=== PATIENT | male | born 1940 | race Caucasian/White ===

== ENCOUNTER 2017-08-19 08:03 | Outpatient (CLI) | payer MEDICARE, BC ==
[2017-08-19 08:45] LABS: Bilirubin Negative (Negative); Blood, Urine Large (Negative); Clarity Clear (Clear); Glucose, Urine (Dipstick) Negative (Negative); Leukocyte Negative (Negative); Nitrite Negative (Negative); Protein, Urine (Dipstick) Negative (Neg-Trace); Specific Gravity, Urine 1.015 (1.005-1.030); Urobilinogen 0.2 mg/dL (0.2-1.0); pH, Urine 7.5 (5.0-9.0)
[2017-08-19 08:58] LABS: Bacteria/HPF None Seen HPF (None Seen); RBC/HPF GREATER THAN 50-TNTC HPF (0-3); Squamous Epithelial 0-3 HPF (0-3); Transitional Epithelial 0-3 HPF (0-3)
[2017-08-19] MEDS ORDERED: Iopamidol 370 76% 100 ML VIAL ONE (09:00)
--- NOTE | 2017-08-19 12:21 | CT ---
CT ABDOMEN AND PELVIS WITH AND WITHOUT IV CONTRAST: Date: 08/19/17 HISTORY: Hematuria. FINDINGS: The lung bases are clear. The liver, spleen, pancreas, and adrenal glands are normal. No calcified ga llstones are seen. No calculi seen in the kidneys, ureters, or the urinary bladder. No hydroureteronephrosis noted on ei ther side. Postcontrast images demonstrate no evidence of renal mass on either side. There is normal contrast excretion by the kidneys into the ureters and the urinary bladder. Prostate gland is enlarge d. No free air, free fluid, or lymphadenopathy seen in the abdomen or pelvis. There are vascular calcifi cations without evidence of aneurysmal dilatation of the abdominal aorta. Degenerative changes are pr esent in the spine. There is sigmoid diverticulosis. Fat-containing small bilateral inguinal hernia a re present, right larger than the left. IMPRESSION: 1. No CT evidence of urinary tract calculi/obstruction or renal mass. 2. Sigmoid diverticulosis. 3. Prostatic enlargement. POS: [facility]
== END 2017-08-19 08:04 | disposition home or self-care (01) ==
LOC: SCSCT 08:03
PROVIDERS: ATTEND Urology
DX: R31.0 Gross hematuria (principal); K57.30 Diverticulosis of large intestine without perforation or abscess without bleeding; N40.0 Benign prostatic hyperplasia without lower urinary tract symptoms
CPT/HCPCS: 74178; 81001; 82565; 87086

== ENCOUNTER 2017-09-04 11:57 | Outpatient (CLI) | payer MEDICARE, BC ==
[2017-09-04 13:57] LABS: Mean Corpuscular HGB CONC 33.2 g/dL (32.0-36.0); Mean Corpuscular Hemoglobin 31.7 pg (27.0-31.0); Mean Corpuscular Volume 95.5 fl (80.0-94.0); Mean Platelet Volume 7.7 fL (7.4-10.4); Platelet Count 246 thou/uL (130-400); RBC Distribution Width 11.9 % (11.5-14.5); Red Blood Cell (RBC) Count 5.05 mill/uL (4.70-6.10); White Blood Cell (WBC) Count 7.4 thou/uL (4.8-10.8)
[2017-09-04 13:59] LABS: Bilirubin Negative (Negative); Blood, Urine Large (Negative); Clarity CLEAR (Clear); Glucose, Urine (Dipstick) Negative (Negative); Leukocyte Negative (Negative); Nitrite Negative (Negative); Protein, Urine (Dipstick) Negative (Neg-Trace); Specific Gravity, Urine 1.009 (1.002-1.036); Urobilinogen 0.2 mg/dL (0.2-1.0)
[2017-09-04 14:02] LABS: Bacteria/HPF None Seen HPF (None Seen); Hyaline Casts/LPF 0-3 HYALINE CAST LPF (0-3 Hyaline); PTT 34.6 SEC (22.9-36.1); Pathc Cast-AUWi Flag 0.14 (0-2.49); Prothrombin Time 13.6 SEC (12.0-14.7); RBC/HPF GREATER THAN 50-TNTC HPF (0-3); Squamous Epithelial None Seen HPF (0-3); WBC/HPF 0-3 HPF (0-3)
[2017-09-04 14:22] LABS: Anion Gap 12 mmol/L (10-20); BUN (Urea Nitrogen) 13 mg/dL (8.4-25.7); Calc. Creatinine Clearance 0 mL/min (70-130); Calcium 10.2 mg/dL (7.8-10.44); Carbon Dioxide 28 mmol/L (23-31); Chloride 102 mmol/L (98-107); Estimated GFR-MDRD Greater than 90; Glucose 108 mg/dL (83-110); Potassium 4.2 mmol/L (3.5-5.1); Sodium 138 mmol/L (136-145)
--- NOTE | 2017-09-05 06:22 | EKG ---
Test Reason : Blood Pressure : / mmHG Vent. Rate : 084 BPM Atrial Rate : 084 BPM P-R Int : 180 ms QRS Dur : 088 ms QT Int : 384 ms P-R-T Axes : 063 010 063 degrees QTc Int : 453 ms Normal sinus rhythm Normal ECG No previous ECGs available Confirmed by KEREN FAJARDO ([id number]) on 09/05/2017 5:54:38 AM Referred By: AURA Confirmed By:KEREN FAJARDO
== END 2017-09-04 11:58 | disposition home or self-care (01) ==
LOC: LABBT 11:57
PROVIDERS: ATTEND Urology
DX: Z01.818 Encounter for other preprocedural examination (principal); C67.8 Malignant neoplasm of overlapping sites of bladder
CPT/HCPCS: 80048; 81003; 81015; 85027; 85610; 85730; 87086; 93005; 93010

== ENCOUNTER 2017-09-05 15:03 | Outpatient (CLI) | payer MEDICARE, BC | END 2017-09-05 15:04 | disposition home or self-care (01) | LOC: LABBT 15:03 | PROVIDERS: ATTEND Urology | DX: Z01.812 Encounter for preprocedural laboratory examination (principal); C67.8 Malignant neoplasm of overlapping sites of bladder | CPT/HCPCS: 86850; 86900; 86901 ==

== ENCOUNTER 2017-09-12 06:51 | Day surgery (SDC) | payer MEDICARE, BC ==
[2017-09-04 12:44] VITALS: BMI 28.7
[2017-09-12] MEDS ORDERED: WATER FOR INJECTION STERILE I-VESIC SCH (07:45)
[2017-09-12] MEDS ORDERED: ADMIXTURE FEE I-VESIC SCH (07:45)
[2017-09-12] MEDS ORDERED: MITOMYCIN I-VESIC SCH (07:45)
[2017-09-12] MEDS ORDERED: Levofloxacin 500 mg/D5W 100 ml Premix Bag ONE (08:08)
[2017-09-12] MEDS ORDERED: Ondansetron HCl/PF 4 MG/2 ML Vial ONE ×2 (08:39→16:48)
[2017-09-12] MEDS ORDERED: Fentanyl 100 MCG/2 ML VIAL ONE (08:39)
[2017-09-12] MEDS ORDERED: Midazolam HCl 2 mg/2 ml Vial ONE (08:39)
[2017-09-12] MEDS ORDERED: B & O ONE (10:06)
--- NOTE | 2017-09-12 12:26 | OP ---
DATE OF PROCEDURE: 09/12/2017 SERVICE: Urology. SURGEON: Manuel Robles M.D. PREOPERATIVE DIAGNOSIS: Bladder cancer and prostatic bleeding. PROCEDURE PERFORMED: Transurethral resection of bladder tumors greater than 5 cm along with mini res ection of the prostate for control of postoperative bleeding. INDICATIONS FOR PROCEDURE: Mr. Russell is a 77-year-old white male who presented to me with gross h ematuria. On cystoscopy, the patient was noted to have multifocal bladder tumors with hemorrhage, in dicating active bleeding. He also had significant dilated and ectatic veins and vasculature within t he prostate. It is very possible that he has blood from both sources. I discussed resection of the bladder tumors with postoperative mitomycin C with him with risks and benefits and he has agreed to p roceed forward. DESCRIPTION OF PROCEDURE: After identification of his armband and verification of consent, the patie yenni was brought back to the operating room where he underwent general anesthesia with endotracheal int ubation and for paralysis. He was then placed in dorsal lithotomy position and prepped and draped in usual sterile fashion. After appropriate timeout, a lubricated 26 Turkmen resectoscope sheath with v isual obturator was then placed through the urethra into the patient's bladder. Full cystoscopy was performed demonstrating the previously noted tumors at the right anterior left lateral posterior blad mayela wall and near the right UO. The visual obturator was switched out for the bipolar resectoscope s andrei with the prostate loop. Immediately it was noted there was a significant amount of hematuria i n the patient's bladder that required irrigation and removal of multiple clots. After inspection wit hin the bladder, it was apparent that bladder was not bleeding, but it was indeed the prostate that w as bleeding due to the high vascularity. During cystoscopy with the rigid scope, some of these veins , likely had become ruptured and were bleeding fairly profusely. Attempts at fulguration of these ve ins have resulted in more bleeding. Therefore, we had to actually resect the surface urothelium of t he prostate to control the bleeding as it was bleeding profusely to the point that the visualization was impaired and the patient would likely end up in clot retention postoperatively. Resection of the prostate was carried out just a few millimeters below the urothelium to avoid significant changes as sociated with TURP since I did not really discuss this with the patient preoperatively. Once the ble eding was more adequately controlled, resection of the tumors were performed using the bipolar loop. There was excellent resection into the detrusor muscle and there was no visible tumor left. All res ections were done on the left and right and posterior bladder wall. The area near the right UO was v garland small and could just be fulgurated. The area in the posterior bladder was also fulgurated except for the larger tumor which was resected as previously mentioned. All the bases of the bladder tumor s were cauterized and the surrounding tissues were cauterized to ensure adequate destruction of malig nant tissue. Remainder of cystoscopy demonstrated there were additional tumors noted within the blad mayela. Inspection of the prostatic fossa demonstrated repeat bleeding. Extensive fulguration was perf ormed within the prostatic urethra, but again the bleeding could not be completely stopped. It was s ignificantly slowed down, but oozing persisted as the prostate is extremely vascular. I elected to l eave the catheter in the patient. The catheter was replaced anyways for mitomycin C installation, bu t we will probably send the patient home with the catheter due to the amount of bleeding that is pres ent. A 20 Turkmen 2-way Esteban catheter was placed with ease into the bladder. A 10 mL of sterile lupe er placed into the balloon. The bladder was irrigated until clear. There does not appear to be any active bleeding from within the bladder as the urine was relatively clear. There was bleeding coming from around the catheter, indicating that all the bleeding is indeed from the prostate. A 40 mg of mitomycin were instilled into the bladder which was diluted in 20 mL of water. A Esteban catheter plug was placed. The patient was then taken out of positioning, awakened and taken to PACU for recovery in stable condition. Complication is prostatic bleeding, which was controlled intraoperatively. Th e patient probably lost only 75 mL of blood, but the bleeding was somewhat unexpected, but was able t o be controlled adequately. ESTIMATED BLOOD LOSS: 75 mL. RETAINED TUBES AND DRAINS: A 20 Turkmen Esteban catheter. SPECIMENS: Prostate chips and bladder tumor chips. DISPOSITION: The patient will be discharged home with a Esteban catheter. He will follow up with me i n approximately 7 days for a void trial.
[2017-09-12] MEDS ORDERED: Lidocaine 1% PF 5 ML VIAL ONE (16:48)
[2017-09-12] MEDS ORDERED: Glycopyrrolate 0.2 MG/ML 5 ML SYRINGE ONE (16:48)
[2017-09-12] MEDS ORDERED: Dexamethasone 20 MG/5 ML VIAL ONE (16:48)
[2017-09-12] MEDS ORDERED: PROPOFOL 200 MG/20 ML VIAL ONE (16:48)
== END 2017-09-12 14:30 | disposition home or self-care (01) ==
LOC: SDC 06:51
PROVIDERS: ATTEND Urology
PROC: 0T5B8ZZ Destruction of Bladder, Via Natural or Artificial Opening Endoscopic (ICD-10-PCS; principal; 2017-09-12)
DX: C67.8 Malignant neoplasm of overlapping sites of bladder (principal); R31.0 Gross hematuria; Z88.8 Allergy status to other drugs, medicaments and biological substances; Z88.2 Allergy status to sulfonamides
CPT/HCPCS: 52240; 88307; J9280; J1100; J1956; J2001; J2250; J2405; J2704; J3010

== ENCOUNTER 2018-01-06 11:34 | Outpatient (CLI) | payer MEDICARE, BC ==
[2018-01-06 12:58] LABS: Hemoglobin 15.1 g/dL (14.0-18.0); Mean Corpuscular HGB CONC 34.7 g/dL (32.0-36.0); Mean Corpuscular Hemoglobin 33.3 pg (27.0-31.0); Mean Corpuscular Volume 95.8 fL (78.0-98.0); Platelet Count 200 thou/uL (130-400); RBC Distribution Width 11.8 % (11.5-14.5); Red Blood Cell (RBC) Count 4.54 mill/uL (4.70-6.10)
[2018-01-06 13:05] LABS: PTT 34.1 SEC (22.9-36.1); Prothrombin Time 13.3 SEC (12.0-14.7)
[2018-01-06 13:19] LABS: Bilirubin Negative (Negative); Blood, Urine Negative (Negative); Clarity CLEAR (Clear); Glucose, Urine (Dipstick) Negative (Negative); Leukocyte Moderate (Negative); Nitrite Negative (Negative); Protein, Urine (Dipstick) Negative (Neg-Trace); Specific Gravity, Urine 1.009 (1.002-1.036)
[2018-01-06 13:22] LABS: Bacteria/HPF None Seen HPF (None Seen); Hyaline Casts/LPF 0-3 HYALINE CAST LPF (0-3 Hyaline); Pathc Cast-AUWi Flag 0.43 (0-2.49); RBC/HPF 0-3 HPF (0-3); Squamous Epithelial 0-3 HPF (0-3); WBC/HPF 21-50 HPF (0-3)
[2018-01-06 13:23] LABS: Anion Gap 12 mmol/L (10-20); BUN (Urea Nitrogen) 18 mg/dL (8.4-25.7); Calc. Creatinine Clearance 0 mL/min (70-130); Calcium 9.8 mg/dL (7.8-10.44); Carbon Dioxide 29 mmol/L (23-31); Chloride 102 mmol/L (98-107); Estimated GFR-MDRD 79; Glucose 86 mg/dL (83-110); Potassium 4.4 mmol/L (3.5-5.1); Sodium 139 mmol/L (136-145)
--- NOTE | 2018-01-07 07:00 | EKG ---
Test Reason : Blood Pressure : / mmHG Vent. Rate : 066 BPM Atrial Rate : 066 BPM P-R Int : 188 ms QRS Dur : 088 ms QT Int : 420 ms P-R-T Axes : 068 037 068 degrees QTc Int : 440 ms Sinus rhythm with Premature atrial complexes Otherwise normal ECG When compared with ECG of 04-SEP-2017 12:23, No significant change was found Confirmed by KEREN FAJARDO ([id number]) on 01/07/2018 7:00:36 AM Referred By: AURA Confirmed By:KEREN FAJARDO
== END 2018-01-06 11:35 | disposition home or self-care (01) ==
LOC: LABBT 11:34
PROVIDERS: ATTEND Urology
DX: Z01.818 Encounter for other preprocedural examination (principal); N40.1 Benign prostatic hyperplasia with lower urinary tract symptoms; R33.8 Other retention of urine
CPT/HCPCS: 80048; 81001; 85027; 85610; 85730; 87077; 87086; 87186; 93005; 93010

== ENCOUNTER 2018-01-10 13:11 | Outpatient (CLI) | payer MEDICARE, BC | END 2018-01-10 13:12 | disposition home or self-care (01) | LOC: LABBT 13:11 | PROVIDERS: ATTEND Urology | DX: Z01.812 Encounter for preprocedural laboratory examination (principal); N40.1 Benign prostatic hyperplasia with lower urinary tract symptoms; R33.9 Retention of urine, unspecified | CPT/HCPCS: 86850; 86900; 86901 ==

== ENCOUNTER 2018-01-16 05:54 | Observation (INO) | payer MEDICARE, BC ==
[2018-01-06 12:18] VITALS: BMI 27.2
[2018-01-16] MEDS ORDERED: Levofloxacin 500 mg/D5W 100 ml Premix Bag ONE (07:06)
[2018-01-16] MEDS ORDERED: B & O 30 MG SUPP ONE (07:20)
[2018-01-16] MEDS ORDERED: Iothalamate Meglumine 60% 50 ML VIAL FS ONE ×2 (07:21→09:33)
[2018-01-16] MEDS ORDERED: Fentanyl 100 MCG/2 ML VIAL ONE (07:42)
[2018-01-16] MEDS ORDERED: Promethazine HCl 25 MG/ML VIAL SLOW IVP PRN (09:18)
[2018-01-16] MEDS ORDERED: Ondansetron HCl/PF 4 MG/2 ML Vial IVP PRN ×2 (09:18→13:02)
[2018-01-16] MEDS ORDERED: Promethazine HCl 25 MG/ML VIAL IM PRN (09:18)
--- NOTE | 2018-01-16 10:05 | OP ---
DATE OF PROCEDURE: 01/16/2018 SERVICE: Urology SURGEON: Manuel Robles M.D. PREOPERATIVE DIAGNOSES: Benign prostatic hypertrophy with bladder outlet obstruction. POSTOPERATIVE DIAGNOSES: Benign prostatic hypertrophy with bladder outlet obstruction. PROCEDURE PERFORMED: Transurethral vaporization of residual prostate. INDICATIONS FOR PROCEDURE: Mr. Russell is a 77-year-old white male who initially presented to me with gross hematuria. He does have significant urinary difficulties. On his workup, he was found to have a large bladder tumor which was resected and found to be high grade. At the time, he had a portion of his prostate resected due to bleeding. Unfortunately he ended up on CIC postoperatively and has had to continue doing this, while we started BCG treatments. He is now coming in for surgical treatment of his prostate now that he has completed his induction BCG cycle, so that we may attempt to have him stop doing CIC and resume normal voiding. Risks and benefits have been discussed and he has agreed to proceed forward. DESCRIPTION OF PROCEDURE: After identification of his armband and verification of consent, the patient was brought back to the operating room where he underwent general anesthesia with an LMA. He was then placed in dorsal lithotomy position and prepped and draped in usual sterile fashion. After appropriate timeout, a lubricated 24-Bahraini resectoscope sheath with visual obturator was introduced per urethra into the bladder. The visual obturator was then switched out for the bipolar button. A cystoscopy was performed. There were no apparent bladder tumors. The prior resection site appears to be healing well and is now just an erythematous patch. The prostate itself does not have any unusual lesions. Vaporization was begun on the lateral lobes and these were taken down until there was enough working room. Relaxing incisions were made at 5 and 7 o'clock at the bladder neck and the intervening tissue vaporized. Vaporization was then completed circumferentially until the majority of the prostate had been removed. There is still some prostate tissue left, but it appears to be relatively thin rim under distention to avoid capsular injury and given the bladder neck was completely opened at this point along with removal of almost the majority of the obstructing prostate, I felt comfortable that the patient would do well with his urination. Meticulous hemostasis was performed. Both ureters were identified and were found to be in the orthotopic location unharmed. There were no specimens or pieces of the prostate within the bladder. The resectoscope was then removed and a 22-Bahraini three-way Esteban catheter was passed with ease into the bladder with 30 mL of sterile water in the balloon. CBI was initiated. The patient was then awakened and taken to PACU for recovery in stable condition. Of note, the patient had 16-A B&O suppository placed in his rectum prior to waking up. COMPLICATIONS: None. ESTIMATED BLOOD LOSS: Minimal. RETAINED TUBES AND DRAINS: A 22-Bahraini 3-way Esteban catheter on CBI. SPECIMENS: None. DISPOSITION: The patient will be kept in the hospital on observation for 23 hours. We will perform a void trial tomorrow and then he can be discharged. JUAN
[2018-01-16] MEDS ORDERED: PHENYLEPHRINE-NS 100 MCG/ML 10 ML SYRINGE ONE (11:29)
[2018-01-16] MEDS ORDERED: Lidocaine 1% PF 5 ML VIAL ONE (11:29)
[2018-01-16] MEDS ORDERED: Glycopyrrolate 0.2 MG/ML 5 ML SYRINGE ONE (11:29)
[2018-01-16] MEDS ORDERED: Dexamethasone 20 MG/5 ML VIAL ONE (11:29)
[2018-01-16] MEDS ORDERED: PROPOFOL 200 MG/20 ML VIAL ONE (11:29)
[2018-01-16] MEDS ORDERED: Hyoscyamine Sulfate SL 0.125 mg Tablet SL PRN (13:02)
[2018-01-16] MEDS ORDERED: Acetaminophen 500 MG TAB PO PRN (13:02)
[2018-01-16] MEDS ORDERED: Bisacodyl 10 MG SUPP PR PRN (13:02)
[2018-01-16] MEDS ORDERED: traMADol HCl 50 MG TAB PO PRN (13:02)
[2018-01-16] MEDS ORDERED: hydrALAZINE 20 MG/ML VIAL SLOW IVP PRN (13:02)
[2018-01-16] MEDS ORDERED: diphenhydrAMINE 25 MG CAP PO PRN (13:02)
[2018-01-16] MEDS ORDERED: Morphine 4 MG/ML VIAL SLOW IVP PRN (13:02)
[2018-01-16] MEDS ORDERED: Oxybutynin 5 MG TAB PO PRN (13:02)
[2018-01-16] MEDS ORDERED: Mag-Al 1200 mg/1200 mg/30 ML UDCUP PO PRN (13:02)
[2018-01-16] MEDS: Docusate 100 MG CAP PO SCH (20:33)
[2018-01-17 04:28] LABS: #Eosinphils 0.2 thou/uL (0.0-0.7); #Lymphocytes 1.1 thou/uL (1.20-3.40); #Monocytes 0.7 thou/uL (0.11-0.59); #Neutrophils 6.8 thou/uL (1.40-6.50); %Basophils 0.4 % (0.0-1.0); %Eosinophils 1.8 % (0.0-10.0); %Lymphocytes 12.2 % (21.0-51.0); %Monocytes 8.2 % (0.0-10.0); %Neutrophils 77.5 % (42.0-75.0); Hemoglobin 13.8 g/dL (14.0-18.0); Mean Corpuscular HGB CONC 34.7 g/dL (32.0-36.0); Mean Corpuscular Hemoglobin 33.5 pg (27.0-31.0); Mean Corpuscular Volume 96.4 fL (78.0-98.0); Mean Platelet Volume 7.8 fL (7.4-10.4); Platelet Count 192 thou/uL (130-400); RBC Distribution Width 11.7 % (11.5-14.5); Red Blood Cell (RBC) Count 4.11 mill/uL (4.70-6.10); White Blood Cell (WBC) Count 8.7 thou/uL (4.8-10.8)
[2018-01-17 04:35] LABS: Anion Gap 12 mmol/L (10-20); BUN (Urea Nitrogen) 16 mg/dL (8.4-25.7); Calc. Creatinine Clearance 79 mL/min (70-130); Calcium 9.3 mg/dL (7.8-10.44); Carbon Dioxide 26 mmol/L (23-31); Chloride 105 mmol/L (98-107); Estimated GFR-MDRD 78; Glucose 112 mg/dL (83-110); Sodium 139 mmol/L (136-145)
[2018-01-17] MEDS ORDERED: Levothyroxine Sodium 50 MCG TAB PO SCH (06:00)
[2018-01-17] MEDS: Docusate 100 MG CAP PO SCH (08:11)
[2018-01-17] MEDS ORDERED: Ezetimibe 10 MG TAB PO SCH (09:00)
[2018-01-17] MEDS ORDERED: Fenofibrate Nanocrystallized 145 MG TAB PO SCH (09:00)
[2018-01-17] MEDS ORDERED: Nisoldipine 8.5 MG TAB PO SCH (09:00)
[2018-01-17 11:49] VITALS: BP 139/81; TEMP 98
--- NOTE | 2018-01-17 14:04 | PRG ---
DATE OF SERVICE: 01/17/2018 SUBJECTIVE: The patient states he is feeling very good today. He has had no major bladder spasms an d no problems with his catheter. His CBI was turned off this morning and his urine looks good. Ther efore, his catheter was removed as a void trial. He since has urinated several times, which are in t he bathroom for my inspection. He did not report any significant burning and stated the urine stream felt quite good. He is, however, complaining of significant urinary frequency about every hour. He denies any chest pain or shortness of breath. PHYSICAL EXAMINATION: VITAL SIGNS: Temperature 98, pulse 67, respirations 16, blood pressure 139/81, saturations 94% on ro om air. GENERAL: No apparent distress. CARDIOVASCULAR: Regular rate and rhythm. ABDOMEN: Soft, nontender, nondistended. Positive bowel sounds. GENITOURINARY: Nonfocal. No blood at the meatus currently, mild erythema around the meatus. Testes are bilaterally descended. Esteban catheter was clear at the time of catheter removal. EXTREMITIES: No clubbing, cyanosis or edema. LABORATORY DATA: The full set of labs is in the [facility] system, which I have reviewed. Of note, th e patient's white count is 8.7 with a hemoglobin of 13.8 and a creatinine of 0.94. ASSESSMENT AND PLAN: A 77-year-old white male with benign prostatic hypertrophy and history of bladd er cancer, status post transurethral electrovaporization of the prostate postop day 1 with successful void trial and relatively clear urine. His urine specimens do not show any significant blood and he is not having any problems emptying. Therefore, I think he is good to go home. I have gone over de s discharge instructions and I will see him back in 2 weeks for a postop check.
--- NOTE | 2018-01-17 14:28 | DIS ---
DATE OF ADMISSION: 01/16/2018 DATE OF DISCHARGE: 01/17/2018 ADMITTING DIAGNOSIS: Benign prostatic hyperplasia with obstruction. DISCHARGE DIAGNOSIS: Benign prostatic hyperplasia with obstruction. PROCEDURE PERFORMED WHILE INPATIENT: Transurethral vaporization of the prostate. BRIEF HISTORY: Mr. Russell is a 77-year-old white male with a history of bladder cancer, hematuria, and urinary symptoms. He has already undergone a TURBT with removal of his high-grade bladder cance r and has started induction BCG. During this time period, he ended up in urinary retention and was d oing CIC. To treat this, we have now brought him in for vaporization of his prostate. HOSPITAL COURSE: After patient's surgery (please see operative note for details), the patient was ke pt in the hospital on observation for continuous bladder irrigation for hematuria. He had very littl e hematuria and his CBI was stopped the day after surgery. His urine was very clear. His catheter w as removed and the patient voided spontaneously 3 times, each which demonstrated less blood in the ur ine. He felt good without any problem, so he was discharged home. DISPOSITION: Discharge to home. DISCHARGE CONDITION: Good. DISCHARGE MEDICATIONS: Including resuming all of his home medications except Flomax. He will, in ad dition, be given Colace 100 mg p.o. b.i.d., oxybutynin extended release 10 mg p.o. daily, and Pyridiu m 100 mg p.o. t.i.d. p.r.n. dysuria. The patient also has a supply of tramadol 50 mg p.o. q.6 hours p.r.n. pain, which he already has from his prior TURBT, which he can take for pain control if needed. DISCHARGE INSTRUCTIONS: Include no heavy lifting over 20 pounds, no strenuous activity for 1-2 weeks . He can submerge in shower. He can have a regular diet. He should notify me if there are any feve rs, significant bleeding, uncontrolled pain, or inability to urinate. He should also avoid constipat ion. His followup will be in 2 weeks for a postop check.
== END 2018-01-17 14:22 | disposition home or self-care (01) ==
LOC: SDC 05:54 → INTOOBSV 12:54 → SURG B 12:54
PROVIDERS: ADMIT Urology; ATTEND Urology
PROC: 0VB08ZZ Excision of Prostate, Via Natural or Artificial Opening Endoscopic (ICD-10-PCS; principal; 2018-01-16)
DX: N40.1 Benign prostatic hyperplasia with lower urinary tract symptoms (principal); N13.8 Other obstructive and reflux uropathy; I10 Essential (primary) hypertension; E78.5 Hyperlipidemia, unspecified; E03.9 Hypothyroidism, unspecified; G43.909 Migraine, unspecified, not intractable, without status migrainosus; E07.9 Disorder of thyroid, unspecified; E78.00 Pure hypercholesterolemia, unspecified; Z85.51 Personal history of malignant neoplasm of bladder; Z79.899 Other long term (current) drug therapy; Z88.2 Allergy status to sulfonamides; Z88.8 Allergy status to other drugs, medicaments and biological substances
CPT/HCPCS: 52601; 80048; 85025; C1758; C1769; G0378; 36415; J1100; J1956; J2001; J2704; J3010; Q9961

== ENCOUNTER 2018-06-12 10:25 | Inpatient (IN) | payer MEDICARE, BC ==
[2018-06-12] MEDS ORDERED: Thiamine HCl 200 MG/2 ML VIAL ONE (11:18)
[2018-06-12 11:23] LABS: ALT (SGPT) 29 U/L (8-55); AST (SGOT) 25 U/L (5-34); Albumin 4.4 g/dL (3.4-4.8); Alkaline Phosphatase 59 U/L (40-150); Anion Gap 15 mmol/L (10-20); BUN (Urea Nitrogen) 13 mg/dL (8.4-25.7); Bilirubin, Total 0.7 mg/dL (0.2-1.2); Calc. Creatinine Clearance 0 mL/min (70-130); Calcium 9.7 mg/dL (7.8-10.44); Carbon Dioxide 25 mmol/L (23-31); Chloride 101 mmol/L (98-107); Estimated GFR-MDRD 83; Globulin 3.2 g/dL (2.4-3.5); Glucose 114 mg/dL (83-110); Magnesium 2.1 mg/dL (1.6-2.6); Potassium 4.2 mmol/L (3.5-5.1); Protein, Total 7.6 g/dL (5.8-8.1); Sodium 137 mmol/L (136-145)
[2018-06-12 11:27] LABS: #Basophils 0.1 thou/uL (0.0-0.2); #Eosinphils 0.2 thou/uL (0.0-0.7); #Monocytes 0.8 thou/uL (0.11-0.59); #Neutrophils 6.4 thou/uL (1.40-6.50); %Eosinophils 2.8 % (0.0-10.0); %Lymphocytes 11.2 % (21.0-51.0); %Monocytes 9.2 % (0.0-10.0); %Neutrophils 75.8 % (42.0-75.0); Hemoglobin 15.5 g/dL (14.0-18.0); Mean Corpuscular HGB CONC 33.6 g/dL (32.0-36.0); Mean Corpuscular Volume 95.2 fL (78.0-98.0); Mean Platelet Volume 8.3 fL (7.4-10.4); Platelet Count 194 thou/uL (130-400); RBC Distribution Width 12.1 % (11.5-14.5); Red Blood Cell (RBC) Count 4.85 mill/uL (4.70-6.10); White Blood Cell (WBC) Count 8.5 thou/uL (4.8-10.8)
[2018-06-12] MEDS ORDERED: Gadobenate Dimeglumine 529 MG/1 ML (20ML VIAL) ONE (11:28)
[2018-06-12 11:29] LABS: PTT 34.3 SEC (22.9-36.1); Prothrombin Time 13.5 SEC (12.0-14.7)
[2018-06-12 11:43] LABS: Bilirubin Negative (Negative); Blood, Urine Negative (Negative); Clarity Clear (Clear); Glucose, Urine (Dipstick) Negative (Negative); Leukocyte Trace (Negative); Nitrite Negative (Negative); Protein, Urine (Dipstick) Negative (Neg-Trace); Urobilinogen 0.2 mg/dL (0.2-1.0); pH, Urine 6.5 (5.0-9.0)
[2018-06-12 11:45] LABS: Specific Gravity, Urine 1.004 (1.002-1.036)
[2018-06-12 11:51] LABS: Bacteria/HPF Rare-Few HPF (None Seen); RBC/HPF 0-3 HPF (0-3); Squamous Epithelial 0-3 HPF (0-3); WBC/HPF 21-50 HPF (0-3)
--- NOTE | 2018-06-12 12:06 | CT ---
NONCONTRAST CT OF BRAIN: Date: 06/12/18 INDICATION: Right-sided hemianopsia with memory loss for 2 days. TECHNIQUE: Noncontrast CT images were obtained of the brain. No comparisons are available. FINDINGS: There is moderate chronic small vessel white matter ischemic change involving the cerebral hemisphere s bilaterally. There is remote lacunar infarct involving the left globus pallidus. There is a promine nt hypodensity involving the left aspect of the splenium with the corpus callosum measuring approxima tely 1.4 cm. There is some hypointensity involving the medial cortex of the left temporal lobe and le ft occipital lobe on image 17 of series 2, image 19 of series 2, and image 20 of series 2. This can b e related to a subacute chronic infarct or possibly metastatic disease. Septum pellucidum and third v entricle are midline. Skull and extracranial soft tissues are unremarkable. Mastoid air cells and par anasal sinuses are clear. IMPRESSION: 1. Subtle hypodensities along the cortex of the medial left temporal lobe and left occipital lobe ma y reflect subacute to chronic infarcts versus metastatic disease. MRI of the brain with and without c ontrast recommended for further evaluation. 2. Subtle hypodensity involving the left splenium of the corpus callosum may be related to a prior i nfarct, demylenation or possibly malignancy or metastatic disease. MRI of the brain with and without contrast will be helpful for further characterization. 3. Moderate chronic small vessel white matter ischemic change. Findings called to Dr. Salazar at 1135 hours on 06/12/18. CODE CR. POS: [facility]
--- NOTE | 2018-06-12 13:49 | MRI ---
MRI BRAIN WITH AND WITHOUT CONTRAST: Date: 06/12/18 CLINICAL HISTORY: Right hemianopsia. Reference made to preceding CT exam of head same date. FINDINGS: There is multifocal restricted diffusion of the left LIAISON OFFICER distribution which involves the left occipit al lobe, inferior left temporal lobe, and the left thalamus. There is no hemorrhagic transformation. There is a punctate focus of miller at the posterior left lentiform nucleus, which may be related to h emosiderin deposition from lacunar infarction. There is mild to moderate chronic ischemic disease of the cerebral white matter and josue. The skull base flow-voids are limited in assessment by the degree of patient motion. There is no enhancing intra-axial mass demonstrated. No ventriculomegaly or midli ne shift. IMPRESSION: Evidence of multifocal acute infarction, corresponding to left LIAISON OFFICER distribution. No hemorrhagic trans formation is demonstrated. POS: [facility]
[2018-06-12] MEDS ORDERED: Metoprolol Tartrate 5 MG/5 ML VIAL ONE ×2 (14:03→14:05)
[2018-06-12] MEDS ORDERED: Metoprolol Tartrate 25 MG TAB ONE ×2 (14:04→15:12)
[2018-06-12] MEDS ORDERED: Acetaminophen 500 MG TAB PO PRN (15:48)
[2018-06-12 18:19] VITALS: BMI 20.6
[2018-06-12] MEDS ORDERED: Thiamine HCl 500 MG, Admixture Fee 1 EACH in Sodium Chloride 0.9% 250 ML 250 ML IVPB SCH (20:00)
[2018-06-12] MEDS: Famotidine 20 MG TAB PO SCH (22:39)
[2018-06-12] MEDS: Docusate 100 MG CAP PO SCH (22:39)
[2018-06-13] MEDS: Levothyroxine Sodium 50 MCG TAB PO SCH (05:48)
[2018-06-13 06:39] LABS: #Basophils 0.1 thou/uL (0.0-0.2); #Eosinphils 0.3 thou/uL (0.0-0.7); #Lymphocytes 0.9 thou/uL (1.20-3.40); #Monocytes 0.8 thou/uL (0.11-0.59); #Neutrophils 4.1 thou/uL (1.40-6.50); %Basophils 0.8 % (0.0-1.0); %Eosinophils 5.5 % (0.0-10.0); %Lymphocytes 14.7 % (21.0-51.0); %Monocytes 12.4 % (0.0-10.0); %Neutrophils 66.6 % (42.0-75.0); Hemoglobin 13.9 g/dL (14.0-18.0); Mean Corpuscular HGB CONC 33.9 g/dL (32.0-36.0); Mean Corpuscular Hemoglobin 32.2 pg (27.0-31.0); Mean Platelet Volume 8.5 fL (7.4-10.4); Platelet Count 177 thou/uL (130-400); RBC Distribution Width 11.6 % (11.5-14.5); Red Blood Cell (RBC) Count 4.33 mill/uL (4.70-6.10); White Blood Cell (WBC) Count 6.2 thou/uL (4.8-10.8)
[2018-06-13] MEDS ORDERED: hydrALAZINE 25 MG TAB PO PRN (07:49)
--- NOTE | 2018-06-13 08:57 | ULT ---
CAROTID ULTRASOUND WITH GRAYSCALE AND DOPPLER DUPLEX COLORFLOW IMAGING SPECTRAL ANALYSIS PERFORMED: INDICATIONS: CVA. Vision deficit. Memory loss. FINDINGS: There is scattered mild atherosclerotic calcification of the carotid arteries. PEAK SYSTOLIC VELOCITY (CM/S): Right CCA 99 Left CCA 85 Right ICA 26 Left ICA 37 There is antegrade flow within the visualized bilateral vertebral arteries. IMPRESSION: 1. No hemodynamically significant stenosis of the right internal carotid artery. 2. No hemodynamically significant stenosis of the left internal carotid artery. POS: [facility]
[2018-06-13] MEDS ORDERED: Nisoldipine 8.5 MG TAB PO SCH (09:00)
[2018-06-13] MEDS: Fenofibrate Nanocrystallized 145 MG TAB PO SCH (10:02)
[2018-06-13] MEDS: Docusate 100 MG CAP PO SCH ×2 (10:02→21:45)
[2018-06-13] MEDS: Aspirin 325 MG TAB PO SCH (10:03)
[2018-06-13] MEDS: Ezetimibe 10 MG TAB PO SCH (10:03)
[2018-06-13] MEDS: Famotidine 20 MG TAB PO SCH ×2 (10:03→21:45)
[2018-06-13] MEDS ORDERED: NISOLDIPINE 8.5 MG PO SCH (12:00)
--- NOTE | 2018-06-13 16:30 | CT ---
CT BRAIN WITHOUT CONTRAST: CT ANGIOGRAM HEAD: CT ANGIOGRAM NECK: HISTORY: Left COVERED BUTTON MAKER distribution infarct. COMPARISON: Noncontrast head CT from 06/12/2018. CORRELATION: Brain MRI from 06/12/2018. FINDINGS: CT HEAD: Expected evolutionary changes, compatible with a subacute left COVERED BUTTON MAKER distribution infarct. N o acute parenchymal hemorrhage. No extraaxial hematoma. No midline shift. The basilar cisterns are patent. Chronic small vessel ischemic changes of the white matter identified. The calvarium is int act. Adequate aeration of the sinuses and mastoid air cells. There is no significant loss of cortical wall white matter differentiation. No pathologic enhancemen t of the brain parenchyma. Bilateral ocular lenses are appropriately located. Both globes are intact. Retrobulbar fat is prese rved. Symmetric attenuation of the optic nerves and ocular rectus muscles. Midline fatty raphe of the tongue is preserved. No obvious masses within the oral cavity. The aerod igestive tract is patent. Symmetric attenuation of the parotid and submandibular glands. Unremarkable sternocleidomastoid musc les. Unremarkable thyroid gland. No evidence of lymphadenopathy by size criteria. There are varying degrees of central canal stenosis and neural foraminal narrowing, on the basis of d egenerative change. Vacuum disk phenomenon is noted at the C5-C6 and C6-C7 levels. Cervical spine v ertebral body height is maintained. No fracture. The upper mediastinum and lung apices are unremark able. 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 The visualized subclavian ar teries are patent. There is atherosclerosis of a nonaneurysmal aorta. RIGHT CAROTID: The right carotid artery origin has appropriate enhancement and luminal diameter. Th e right common carotid artery, carotid bifurcation, and internal carotid artery have appropriate enha ncement and luminal diameter. There is calcified plaque in the right carotid bifurcation and in the proximal right internal carotid artery, without significant stenosis, based upon NASCET criteria. LEFT CAROTID: The left carotid artery origin has appropriate enhancement and luminal diameter. The left common carotid artery, carotid bifurcation, and internal carotid artery have appropriate enhance ment and luminal diameter. There is atherosclerotic disease without significant stenosis, based upon NASCET criteria, involving the left carotid bifurcation. Both cervical vertebral arteries are patent throughout their course in the neck. Left vertebral anni ry is dominant. CT ANGIOGRAM HEAD: Intracranial internal carotid arteries have appropriate enhancement and luminal d iameter. There is atherosclerosis involving both mid to distal cavernous segments and paraclinoid se gments. ANTERIOR CIRCULATION: Symmetric enhancement and luminal diameter of the A1 and M2 segments. The pro ximal A2 segments and the proximal MCA branches are unremarkable. POSTERIOR CIRCULATION: Limited evaluation of PICA origins. Both intracranial vertebral arteries do supply the basilar artery. There is short segment moderate stenosis involving the distal intracrania l right vertebral artery. The basilar artery is somewhat diminutive. The right P1 segment is unrema rkable. There is short segment severe stenosis involving the distal left P1 segment. IMPRESSION: 1. 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 2. There is atherosclerosis of both cervical carotid arteries. No significant stenosis based upon N ASCET criteria. POS: [facility]
[2018-06-13] MEDS ORDERED: cloNIDine 0.1 MG TAB PO PRN (17:30)
[2018-06-13] MEDS: hydrALAZINE 25 MG TAB PO SCH (21:46)
--- NOTE | 2018-06-14 00:58 | HP ---
CHIEF COMPLAINT: Headache and right visual changes. HISTORY OF PRESENT ILLNESS: This is a 77-year-old gentleman with a history of hypertension, hyperlipidemia, bladder cancer, hypothyroidism, who presented to emergency department with 3-4 days of worsening headache and strange visual changes. The patient states that he was in his usual state of health until about three or four days ago when he developed a headache. It seemed to worsen over the next few days without any relief with [id number] medicines. He noticed some visual changes on his right side where he would lose vision. Did have some word-finding problems that his had notice, presented to the emergency department and was found to have abnormalities on his physical exam including hemianopsia on the right as well as memory loss. CAT scan of his brain was abnormal with hypodensities in the cortex as well as on the left temporal lobe and left occipital lobe. MRI confirmed that which revealed a multifocal acute infarction of the left COOKING CHEF distribution. He was admitted, started on aspirin therapy as blood pressure was attempted to be controlled. Neurology was consulted. The patient remained stable and now being admitted for further evaluation and treatment. PAST MEDICAL HISTORY: Hypertension, hyperlipidemia, bladder malignancy, BPH, hypothyroidism, gout, cervical spine arthritis. MEDICATIONS: Include: 1. Prilosec p.r.n. 2. Oxybutynin 10 mg daily. 3. Toprol 25 mg daily. 4. Zetia 10 mg daily. 5. Nisoldipine 8.5 mg daily. 6. Levothyroxine 50 mcg daily. 7. TriCor 145 mg daily. 8. . ALLERGIES: INCLUDE SULFA, STATINS, VERAPAMIL, COZAAR, AND LISINOPRIL. PAST SURGICAL HISTORY: Excision of skin cancer, cystoscopy and TURP in 2018, colonoscopy in 2015, and bladder tumor excision in 2018. SOCIAL HISTORY: He is , lives at home with his . No smoking. No alcohol use. He is retired. REVIEW OF SYSTEMS: As per the history of present illness. CONSTITUTIONAL: He denies any recent fevers, chills, or recent illness. HEENT: Positive for headache. Positive for blurring, vision changes. No hearing changes. No congestion. CARDIAC: Denies chest pain, shortness of breath, or palpitations. PULMONARY: Denies cough or shortness of breath. GI: Denies nausea, vomiting, abdominal pain, melena, or hematochezia. : History of BPH. No hematuria. No dysuria. NEUROLOGIC: No weakness, seizures, or syncope. PHYSICAL EXAMINATION: VITAL SIGNS: Temperature 98.9, pulse is 74, respirations 20, blood pressure 169/89, pulse ox 94% on room air. GENERAL: He is awake and alert. No acute distress. Speech is clear. Examination was done with his son who states that he does have some memory loss, some word-finding difficulties at times. Mucosa is moist. HEENT: Pupils equally round, react to light and accommodation. Vision changes revealing right hemianopsia. NECK: Supple. No JVD, adenopathy, or bruits. HEART: Regular rate and rhythm. LUNGS: Clear. ABDOMEN: Soft. EXTREMITIES: With no edema. NEUROLOGIC: Cranial nerves 2-12 are intact. Strength is 5/5 in upper and lower extremities. Sensation is intact. DIAGNOSTIC DATA: Laboratory data is reviewed. Abnormal CT and MRI as noted above. White blood cell count 6200, hemoglobin and hematocrit 13.9 and 41, platelets of 177. PT and PTT were normal. Sodium 137, potassium 4.2, chloride 101, CO2 25, BUN and creatinine 13 and 0.89, serum glucose of 114. Liver enzymes are normal. Cholesterol 174, triglycerides 94, LDL of 112. Urinalysis with trace leukocytes. Chest x-ray showed no active disease. Carotid Doppler showed no stenosis. CT angio of the head and neck is pending. 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 PLAN: 1. Agree with admission to the stroke unit with telemetry. Neurology to evaluate. We will continue PT, OT, and speech therapy for evaluation. We will initiate aspirin therapy. May need further anticoagulation as per Neurology. 2. Hypertension. We will continue his home medications including metoprolol and nisoldipine. We will start hydralazine and clonidine p.r.n. 3. Hyperlipidemia. We will check fasting lipids. Continue his Zetia and TriCor as he is statin intolerant. 4. Disposition. We will consult rehab for possible short-term placement. 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 We will consult Case Management for further evaluation of his home needs. Job ID: [id number]
--- NOTE | 2018-06-14 03:17 | CON ---
DATE OF CONSULTATION: 06/13/2018 CHIEF COMPLAINT: Acute stroke. HISTORY OF PRESENT ILLNESS: The patient is a 77-year-old man who comes to the hospital with history of migraines and has longstanding history of aura with migraine. He had this aura for 2 days, but he felt worse. His migraine is usually involving right eye vision loss, but those vision problems lasted only 15 to 20 minutes in the past and he had a total of 3 episodes. At this time, it did not resolve and his vision changes lasted 2 days and he felt worse and comes to the hospital. He does not take any medications for long-standing migraine. He feels that his right side vision has been lost. He has memory problems and no numbness in arms or legs. No change in his strength. 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 The patient primarily notes this right eye visual field deficit, but no history of any weakness or numbness or dizziness. PREVIOUS MEDICAL HISTORY: The patient has a history of bladder cancer, hypertension, and hypothyroidism. His bladder cancer was diagnosed last year in August and he had chemo and surgery. PAST SURGICAL HISTORY: He had a bladder surgery, prostate surgery. He had benign prostatic hypertrophy for which he had surgery and there was no prostate cancer. ALLERGIES: HE IS ALLERGIC TO STATIN, BUT HE DOES NOT REMEMBER WHAT IT WAS. HE THINKS THIS WAS MORE OF A REACTION WHERE HE FELT BAD VERSUS ACTUAL DRUG ALLERGY , AND HE ALSO LISTED SULFA DRUGS, VERAPAMIL, AND LISINOPRIL UNDER HIS ALLERGIES. CURRENT MEDICATIONS AT HOME: Include, 1. Synthroid. 2. Metoprolol. 3. Zetia. 4. Nisoldipine. 5. Aspirin. 6. Biotin. 7. Turmeric root extract. 8. Calcium citrate. 9. Oxybutynin. 10. Colon Health capsules. 11. Vitamin C. 12. Tylenol. 13. Cranberry. FAMILY HISTORY: Positive for his father who at age 77 from prostate cancer. Son and daughter are 51 and 49, and there is no known history of stroke in his family. Mother at 98 from coronary artery disease. SOCIAL HISTORY: He does not smoke. He drinks 5 to 6 glasses per day for the last 35 years. He mostly drinks bourbon and water at least 4 per night per his . REVIEW OF SYSTEMS: NEUROLOGIC: Positive for vision changes and migraine headaches. CARDIAC: Negative for chest pain or palpitations. PULMONARY: Negative for shortness of breath or cough. GI: Negative for any diarrhea or vomiting. HEMATOLOGIC: Negative for bleeding diathesis. METABOLIC: Negative for diabetes, but positive for thyroid dysfunction. MUSCULOSKELETAL: Negative for any joint pain. LABORATORY WORKUP: White count 6.2, hemoglobin 13.9, hematocrit 41.1, platelets 177. Chemistry; sodium 137, potassium 4.2, chloride 101, BUN 13, creatinine 0.89, glucose is 114. Triglycerides 94, cholesterol 174, LDL 112, HDL 43. His MRI of the brain thus show an acute infarct in the left SPEECH CORRECTION ASSISTANT distribution without hemorrhagic transformation. I requested CT angiography on this patient and his CTA shows stroke segment severe stenosis in the distal left P1 segment and there is atherosclerosis of bilateral carotid artery and right P1 segment is unremarkable in the posterior circulation, right carotid artery origin has appropriate enhancement in luminal diameter, and left carotid artery origin has appropriate enhancement and no stenosis. Both cervical and vertebral arteries are patent through the course in the neck. PHYSICAL EXAMINATION: VITAL SIGNS: Blood pressure 169/89, temperature 99.1, pulse 70. GENERAL APPEARANCE: Well-built, well-nourished gentleman who seems to be comfortable. CHEST: Clear vesicular breathing. CARDIOVASCULAR: S1 and S2 heard. No murmurs. ABDOMEN: Soft. NEUROLOGIC: He seems to have some difficulties with orientation, questions, and also has some difficulty with concentration and focusing, but is able to follow most commands and try to participate in the discussion. Cranial nerves II through XII and normal pupillary reaction, and he has right homonymous hemianopia. Normal sensation of face. Normal extraocular movements. Normal elevation of palate. No facial asymmetry. Normal hearing to finger rub bilaterally and tongue midline. No atrophy noted. Motor; bulk normal, tone normal, strength 5/5 throughout in upper and lower extremities in iliopsoas, hamstrings, quadriceps, ankle dorsiflexion, plantar flexion, deltoid, biceps, triceps, wrist extension, and flexion bilaterally. Deep tendon reflexes are 1+ throughout, and he has normal [id number] and [id number]. Normal sensory examination. IMPRESSION: The patient is a 77-year-old man with known history of long- standing migraine, but he also has a history of alcoholism, hypertension, and he has developed sudden-onset vision problems which lasted longer than his usual migraine associated symptoms, and he has also developed acute memory problems. His examination shows venous stasis in both lower extremities and some varicose veins, and no motor deficits were noted, but he has some mild cognitive impairment plus right homonymous hemianopia. His CT angiogram shows stenosis in the left SPEECH CORRECTION ASSISTANT segment as expected. His clinical examination and history are most consistent with acute cerebrovascular accident with left posterior cerebral artery occlusion. TREATMENT RECOMMENDATIONS: 1. Please continue aspirin, but also add Plavix to his regimen. 2. Please consult Interventional Radiology in [facility] or in [place] to see if this gentleman is eligible for a stent placement in the left SPEECH CORRECTION ASSISTANT, so he does not have more difficulties in future. 3. I will discuss the results of the CT angio with him in the morning. Please call if you have any further questions and complete his stroke workup including echocardiogram. Job ID: [id number] MTDD
[2018-06-14] MEDS: Levothyroxine Sodium 50 MCG TAB PO SCH (05:23)
[2018-06-14] MEDS: hydrALAZINE 25 MG TAB PO SCH ×3 (09:35→20:55)
[2018-06-14] MEDS: Ezetimibe 10 MG TAB PO SCH (09:35)
[2018-06-14] MEDS: Aspirin 325 MG TAB PO SCH (09:35)
[2018-06-14] MEDS: Fenofibrate Nanocrystallized 145 MG TAB PO SCH (09:35)
[2018-06-14] MEDS: Famotidine 20 MG TAB PO SCH ×2 (09:35→20:53)
[2018-06-14] MEDS: NISOLDIPINE 8.5 MG PO SCH (09:35)
[2018-06-14] MEDS: Docusate 100 MG CAP PO SCH ×2 (09:36→20:53)
--- NOTE | 2018-06-14 13:19 | PRG ---
DATE OF SERVICE: 06/14/2018 PRIMARY CARE PHYSICIAN: Dr. Gutierrez. SUBJECTIVE: The patient has come in with a visual stroke in the left BIODIESEL PLANT OPERATIONS ENGINEER distribution. His outlook today is good. He feels slightly weak at times, little bit less coordinated at times, and sometimes a little more difficulty in memory. OBJECTIVE: VITAL SIGNS: Good. His blood pressure is 156/72, afebrile, pulse 68, O2 saturation 95% on room air. GENERAL: On exam, he is alert and oriented. NECK: Supple. No JVD. No bruits. No thyromegaly. HEART: S1, S2. No rubs, murmurs, or gallops. LUNGS: Clear to auscultation bilaterally. HEENT: Mucosa is moist. His right eye is slightly injected relative to the left eye. Ocular movement, his right eye is able now to go past midline toward the right. He has essentially full range of motion of both eyes. Visual sheehan show right-sided bilateral hemianopsia. NEUROLOGICAL: His other neurological findings. He has good examination proctor. No dysmetria. No pass pointing. Gait was not tested. ASSESSMENT: Cerebrovascular accident in the left BIODIESEL PLANT OPERATIONS ENGINEER distribution resulting in right bilateral hemianopsia. Continue evaluation with Neurology and PT, OT. 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 Job ID: [id number]
--- NOTE | 2018-06-14 18:47 | PRG ---
DATE OF SERVICE: 06/14/2018 INTERVAL HISTORY: The patient reports he is stable, but has continued confusion, and his family members were in the room, namely daughter and his son. Daughter had multiple questions for me. The patient continues to have right-sided vision loss, and his interval history as noted. His CT angiogram showed left CORRECTIONAL OFFICER SERGEANT occlusion, and his laboratory workup, no further lab results were available. PHYSICAL EXAMINATION: VITAL SIGNS: Temperature 99, blood pressure 156/72, pulse 68, and respiratory rate 20. NEUROLOGICAL: Higher intellectual functions. He thinks this is the October or November. Unable to give us the year and the date and oriented to self. There was definitely confusion during this conversation. On cranial nerve examination, he had right homonymous hemianopsia. No facial asymmetry noted. Tongue midline. No atrophy noted. Motor bulk normal. Tone normal. Strength is normal bilaterally. IMPRESSION: The patient with left CORRECTIONAL OFFICER SERGEANT distribution stroke with CORRECTIONAL OFFICER SERGEANT occlusion. At this time, he continues to have some confusion along with right-sided homonymous hemianopsia. I discussed the case with the patient and his family, and I do recommend him for possible stent procedure for his left CORRECTIONAL OFFICER SERGEANT, please consult Interventional Radiology, and I will see the patient as needed. He will also need further physical therapy and they apparently have questions about whether he can go to rehab center or he could go home. Call me if you have any further questions. Job ID: [id number]
[2018-06-15] MEDS: Levothyroxine Sodium 50 MCG TAB PO SCH (05:51)
[2018-06-15] MEDS: hydrALAZINE 25 MG TAB PO SCH ×3 (08:21→20:33)
[2018-06-15] MEDS: Famotidine 20 MG TAB PO SCH ×2 (08:21→20:30)
[2018-06-15] MEDS: Aspirin 325 MG TAB PO SCH (08:21)
[2018-06-15] MEDS: Ezetimibe 10 MG TAB PO SCH (08:22)
[2018-06-15] MEDS: Fenofibrate Nanocrystallized 145 MG TAB PO SCH (08:22)
[2018-06-15] MEDS: Docusate 100 MG CAP PO SCH ×2 (08:22→20:30)
[2018-06-15] MEDS: NISOLDIPINE 8.5 MG PO SCH (08:23)
--- NOTE | 2018-06-15 12:56 | PRG ---
DATE OF SERVICE: 06/15/2018 SUBJECTIVE: Today, he has no new complaints. Still feels a little unsure when he tries to ambulate just to his right-sided visual field deficit. He has had no new stroke symptoms, still no true dysarthria or dysphagia. OBJECTIVE: VITAL SIGNS: His vitals essentially unchanged. He is afebrile. BP is 140s over 60s, saturating 93% on room air. HEART: S1, S2. No rubs, murmurs, or gallops. LUNGS: Clear to auscultation bilaterally. NEUROLOGIC: Stable, but still with a right-sided homonymous hemianopsia. In discussion with the neurologist by face time with Dr. Chacon, the recommendation is for him to be evaluated for a MANAGER STARS stent as there is a MANAGER STARS occlusion. Consult ordering for Dr. Jimenez, from our Neurosurgery team for that and after that, he qualifies for inpatient rehab, so we will await to hear from Dr. Jimenez and then plan on him going to inpatient rehab. Job ID: [id number]
[2018-06-16] MEDS: Levothyroxine Sodium 50 MCG TAB PO SCH (05:51)
[2018-06-16] MEDS: Ezetimibe 10 MG TAB PO SCH (08:04)
[2018-06-16] MEDS: Aspirin 325 MG TAB PO SCH (08:04)
[2018-06-16] MEDS: Famotidine 20 MG TAB PO SCH ×2 (08:04→21:09)
[2018-06-16] MEDS: Docusate 100 MG CAP PO SCH ×2 (08:04→21:09)
[2018-06-16] MEDS: NISOLDIPINE 8.5 MG PO SCH (08:04)
[2018-06-16] MEDS: hydrALAZINE 25 MG TAB PO SCH ×3 (08:04→21:09)
[2018-06-16] MEDS: Fenofibrate Nanocrystallized 145 MG TAB PO SCH (08:04)
[2018-06-17] MEDS: Levothyroxine Sodium 50 MCG TAB PO SCH (05:25)
--- NOTE | 2018-06-17 05:54 | DIS ---
DATE OF ADMISSION: 06/12/2018 DATE OF DISCHARGE: 06/16/2018 ADMISSION DIAGNOSIS: Left AIR TWIST OPERATOR acute infarction resulting in right homonymous hemianopsia mental status change. DISCHARGE DIAGNOSES: Left AIR TWIST OPERATOR acute infarction resulting in right homonymous hemianopsia mental status change, hypertension, hyperlipidemia, history of bladder cancer. CONSULTATIONS: Dr. Chacon for neurology procedures, brain CT, brain MRI, CT angiogram, carotid Dopplers. HOSPITAL COURSE: This is a 77-year-old gentleman with a history of hypertension and hyperlipidemia, who presented to the emergency department with 3 to 4 days of worsening headache as well as strange visual changes. He noted that he has lost the right side of his visual field. He was seen in the emergency department, found to have word-finding difficulties and some mental changes. CAT scan was abnormal with hypodensities and MRI of the brain confirmed acute infarction of the left AIR TWIST OPERATOR distribution. He was admitted. Blood pressure was attempted to be controlled. He was started on aspirin initially and then added Plavix by Neurology. His symptoms remained stable throughout. CT angiogram of the head and neck confirmed distribution of the left AIR TWIST OPERATOR infarction. Dr. Zabrina Chacon saw the patient in evaluation for neurology, agreed with the plan for his acute AIR TWIST OPERATOR stroke. She initiated Plavix therapy as well and recommended evaluation for possible AIR TWIST OPERATOR stent placement. It was discussed with Dr. Yovany Jimenez, who recommended outpatient followup to see if he is a candidate for AIR TWIST OPERATOR stent placement. Physical therapy, occupational therapy, and speech therapy were all initiated during his hospitalization as far as his stroke protocol remained stable. It was discussed with the family as far his options for continued therapy and was recommended that he go to inpatient rehab prior to going home. Those arrangements were made pending insurance approval and he was stable for discharge on the day of discharge. DISCHARGE PHYSICAL EXAMINATION: VITAL SIGNS: Temperature 98.7, pulse of 66, respirations 20, blood pressure 122/69, pulse ox is 96% on room air. GENERAL: He is awake and alert, in no acute distress. Speech is clear. He was having some word-finding difficulties at times. HEENT: Mucosa is moist. NECK: Supple. No JVD, adenopathy, or bruits. HEART: Regular rate and rhythm. LUNGS: Clear. ABDOMEN: Soft. EXTREMITIES: No edema. Strength is 5/5 in upper and lower extremities. He does continue to have right-sided visual field cut. LABORATORY DATA: Reviewed. Imaging results as discussed above. DISCHARGE MEDICATIONS: Include: 1. Tylenol p.r.n. 2. Aspirin 325 mg daily. 3. Catapres 0.1 q.4 p.r.n. 4. Colace daily. 5. Zetia 10 mg daily. 6. Pepcid 20 mg b.i.d. 7. Tricor 145 mg daily. 8. Hydralazine 25 mg t.i.d. 9. Levothyroxine 50 mcg daily. 10. Metoprolol 50 mg daily. 11. Nisoldipine 8.5 mg daily. FOLLOWUP INSTRUCTIONS: The patient to be transferred to inpatient rehab and follow up with Dr. Jimenez after rehab to discuss options for AIR TWIST OPERATOR stent placement. Follow up in my office in 1 to 2 weeks following his discharge from rehab. Follow up with Neurology in 2 weeks after discharge from rehab. Job ID: [id number]
[2018-06-17] MEDS: Ezetimibe 10 MG TAB PO SCH (08:50)
[2018-06-17] MEDS: Fenofibrate Nanocrystallized 145 MG TAB PO SCH (08:50)
[2018-06-17] MEDS: Aspirin 325 MG TAB PO SCH (08:50)
[2018-06-17] MEDS: Docusate 100 MG CAP PO SCH ×2 (08:50→20:04)
[2018-06-17] MEDS: Famotidine 20 MG TAB PO SCH ×2 (08:50→20:04)
[2018-06-17] MEDS: Clopidogrel Bisulfate 75 MG TAB PO SCH (08:51)
[2018-06-17] MEDS: hydrALAZINE 25 MG TAB PO SCH ×3 (08:51→20:04)
[2018-06-17] MEDS: NISOLDIPINE 8.5 MG PO SCH (08:51)
--- NOTE | 2018-06-17 09:14 | PRG ---
DATE OF SERVICE: 06/17/2018 SUBJECTIVE: The patient was discharged yesterday, but was not able to be transferred to inpatient rehab due to bed availability. He is doing well. Denies any chest pain, shortness of breath, or palpitations. Denies headache at this time. Still having some word-finding difficulties, some confusion at times as well as right-sided loss of vision. The patient continues to feel weak, but does state that he is improving with physical therapy, but does not feel safe to go home. OBJECTIVE: VITAL SIGNS: Temperature 99.0, pulse is 64, respirations 19, blood pressure 116/56, and pulse ox is 93% to 94% on room air. GENERAL: He is awake and alert, in no acute distress. Speech is clear. NECK: Supple. HEART: Regular rate and rhythm. LUNGS: Clear. EXTREMITIES: Strength is 5/5 in upper and lower extremities. ASSESSMENT AND PLAN: 1. This is a 77-year-old gentleman, who suffered a left-sided SKATING RINK MANAGER brain infarction resulting in right homonymous hemianopsia. He is stable for transfer to inpatient rehab. Awaiting for bed availability. 2. Left SKATING RINK MANAGER brain infarction. We will continue aspirin and Plavix as per Neurology. Continue speech therapy, PT and OT, and awaiting placement for inpatient rehab. 3. Hypertension, stable. 4. Hyperlipidemia. We will continue his home medications. 5. Hypothyroidism. Continue his replacement. DISPOSITION: Awaiting for inpatient rehab placement. Job ID: [id number]
[2018-06-18] MEDS: Levothyroxine Sodium 50 MCG TAB PO SCH (05:25)
[2018-06-18] MEDS: Aspirin 325 MG TAB PO SCH (09:41)
[2018-06-18] MEDS: Docusate 100 MG CAP PO SCH (09:41)
[2018-06-18] MEDS: Fenofibrate Nanocrystallized 145 MG TAB PO SCH (09:42)
[2018-06-18] MEDS: Clopidogrel Bisulfate 75 MG TAB PO SCH (09:42)
[2018-06-18] MEDS: Famotidine 20 MG TAB PO SCH (09:42)
[2018-06-18] MEDS: Ezetimibe 10 MG TAB PO SCH (09:43)
[2018-06-18] MEDS: hydrALAZINE 25 MG TAB PO SCH ×2 (09:43→14:00)
[2018-06-18] MEDS: NISOLDIPINE 8.5 MG PO SCH (09:54)
--- NOTE | 2018-06-18 13:36 | PQF ---
CHERYL ALVARADO INO ALFARO DO [id number] [id number] CLINICAL DOCUMENTATION IMPROVEMENT CLARIFICATION FORM: ICD-10 Updated PLEASE DO AN ADDENDUM TO THE PROGRESS NOTE WITH ANY DOCUMENTATION UPDATES OR ADDITIONS AND CARRY THROUGH TO DC SUMMARY. THANK YOU. DATE: 06/18/2018 ATTN: DR. ALFARO Please exercise your independent, professional judgment in responding to the clarification form. Clinical indicators are provided on the bottom of this form for your review Please check appropriate box(s): [ ] Acute Metabolic Encephalopathy [ ] Acute Encephalopathy related to CVA [ xx ] Transient Alteration of Awareness [ ] Other diagnosis [ ] Unable to determine For continuity of documentation, please document condition throughout progress notes and discharge summary. Thank You. CLINICAL INDICATORS - SIGNS / SYMPTOMS / LABS 06/12-ER: HERE FOR VISION CHANGES. PÉREZ X 2D SIMILAR TO A MIGRAINE, NOW RESOLVED. DOESN'T REMEMBER CERTAIN THINGS. FEELS UNBALANCED WHEN HE WALKS. MRI SHOWS LEFT LANDMAN INFARCTION. NOT A TPA CANDIDATE DIAGNOSES INCLUDE: ACUTE ENCEPHALOPATHY NEURO CONSULT 06/13: HE SEEMS TO HAVE SOME DIFFICULTIES WITH ORIENTATION, QUESTIONS, AND ALSO HAS SOME DIFFICULTY WITH CONCENTRATION AND FOCUSING... ... BUT HE HAS SOME MILD COGNITIVE IMPAIRMENT PLUS RIGHT HOMONYMOUS HEMIANOPIA. 06/14-PN: HE FEELS SLIGHTLY WEAK AT TIMES, LITTLE BIT LESS COORDINATED AT TIMES , AND SOMETIMES A LITTLE MORE DIFFICULTY IN MEMORY. ... 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 06/17-DC: HE WAS SEEN IN THE ED, FOUND TO HAVE WORD-FINDING DIFFICULTIES AND SOME MENTAL CHANGES. RISK FACTORS CVA TREATMENTS: Neuro checks / neurology consult MRI of brain REHAB UPON DISCHARGE Thank you, Marion (This form is maintained as a part of the permanent medical record) 2015 [employer], [employer]. All Rights Reserved Marion Wiggins RN, CDIS [email or web address] [phone] [email or web address]
[2018-06-18 15:38] VITALS: BP 139/76; TEMP 98.2
== END 2018-06-18 17:10 | DRG 66 ==
LOC: SCSER 10:25 → SCSEROBS 12:05 → 2SE 17:55
PROVIDERS: ADMIT Family Medicine; ATTEND Family Medicine
DX: I63.532 Cerebral infarction due to unspecified occlusion or stenosis of left posterior cerebral artery (principal); H53.461 Homonymous bilateral field defects, right side; I10 Essential (primary) hypertension; E78.5 Hyperlipidemia, unspecified; Z85.51 Personal history of malignant neoplasm of bladder; G43.109 Migraine with aura, not intractable, without status migrainosus; E03.9 Hypothyroidism, unspecified; F10.20 Alcohol dependence, uncomplicated; I83.93 Asymptomatic varicose veins of bilateral lower extremities; I87.8 Other specified disorders of veins; R29.703 NIHSS score 3; R47.01 Aphasia; R47.1 Dysarthria and anarthria; R47.81 Slurred speech; N40.0 Benign prostatic hyperplasia without lower urinary tract symptoms; M46.82 Other specified inflammatory spondylopathies, cervical region
CPT/HCPCS: 36415; 70450; 70496; 70498; 70553; 80053; 80061; 81003; 81015; 82140; 83735; 85025; 85610; 85730; 93005; 93880; 94760; 96365; 96375; A9579; J3411; J7050

== ENCOUNTER 2018-10-19 10:17 | Emergency (ER) | payer MEDICARE, BC ==
[2018-10-19 10:38] LABS: #Basophils 0.1 thou/uL (0.0-0.2); #Eosinphils 0.2 thou/uL (0.0-0.7); #Lymphocytes 0.8 thou/uL (1.20-3.40); #Monocytes 0.3 thou/uL (0.11-0.59); #Neutrophils 3.1 thou/uL (1.40-6.50); %Basophils 1.2 % (0.0-1.0); %Eosinophils 4.8 % (0.0-10.0); %Lymphocytes 17.8 % (21.0-51.0); %Monocytes 6.3 % (0.0-10.0); Hemoglobin 15.4 g/dL (14.0-18.0); Mean Corpuscular HGB CONC 33.6 g/dL (32.0-36.0); Mean Corpuscular Hemoglobin 30.7 pg (27.0-31.0); Mean Corpuscular Volume 91.3 fL (78.0-98.0); Platelet Count 180 thou/uL (130-400); RBC Distribution Width 11.8 % (11.5-14.5); Red Blood Cell (RBC) Count 5.01 mill/uL (4.70-6.10); White Blood Cell (WBC) Count 4.5 thou/uL (4.8-10.8)
[2018-10-19 10:53] LABS: Potassium 4.4 mmol/L (3.5-5.1); Sodium 140 mmol/L (136-145)
[2018-10-19 10:54] LABS: ALT (SGPT) 13 U/L (8-55); AST (SGOT) 14 U/L (5-34); Albumin 4.3 g/dL (3.4-4.8); Alkaline Phosphatase 58 U/L (40-150); Anion Gap 12 mmol/L (10-20); BUN (Urea Nitrogen) 11 mg/dL (8.4-25.7); Bilirubin, Total 0.4 mg/dL (0.2-1.2); CK (CPK) 67 U/L (30-200); Calc. Creatinine Clearance 0 mL/min (70-130); Calcium 9.9 mg/dL (7.8-10.44); Carbon Dioxide 28 mmol/L (23-31); Chloride 104 mmol/L (98-107); Estimated GFR-MDRD 87; Globulin 2.8 g/dL (2.4-3.5); Glucose 132 mg/dL (83-110); Protein, Total 7.1 g/dL (5.8-8.1)
[2018-10-19] MEDS ORDERED: Diazepam 2.5 MG GEL ONE (11:04)
[2018-10-19] MEDS ORDERED: Meclizine HCl 25 MG TAB ONE (11:04)
[2018-10-19] MEDS ORDERED: Diazepam 5 MG TAB ONE (11:05)
--- NOTE | 2018-10-19 11:05 | RAD ---
EXAM: Single view of the chest HISTORY: Chest pain and dizziness COMPARISON: None FINDINGS: Single view of the chest shows a normal sized cardiomediastinal silhouette. There is no russ dence of consolidation, mass, or pleural effusion. The bones are unremarkable. IMPRESSION: No evidence of acute cardiopulmonary disease
--- NOTE | 2018-10-19 11:08 | CT ---
EXAM: CT brain without contrast HISTORY: History of stroke with worsening dizziness COMPARISON: 06/12/2018 TECHNIQUE: Multiple contiguous axial images were obtained and a CT of the brain without contrast. FINDINGS: There are scattered hypodensities in the subcortical and periventricular white matter consi stent with small vessel ischemic disease. There is encephalomalacia in the left parieto-occipital region from prior left PROCESSING SPECIALIST infarction. There is no evidence of hydrocephalus, intracranial hemorrhage , or extra-axial fluid collection. The calvarium and overlying soft tissues are unremarkable. The visualized paranasal sinuses and masto id air cells are well aerated. IMPRESSION: 1. No evidence of acute intracranial abnormality 2. Encephalomalacia from prior left PROCESSING SPECIALIST infarction.
[2018-10-19 11:55] LABS: Bilirubin Negative (Negative); Blood, Urine Negative (Negative); Clarity Clear (Clear); Glucose, Urine (Dipstick) Negative (Negative); Leukocyte Negative (Negative); Nitrite Negative (Negative); Protein, Urine (Dipstick) Negative (Neg-Trace); Urobilinogen 0.2 mg/dL (0.2-1.0)
== END 2018-10-19 12:16 | disposition home or self-care (01) ==
LOC: SCSER 10:17
DX: H81.399 Other peripheral vertigo, unspecified ear (principal); I10 Essential (primary) hypertension; E03.9 Hypothyroidism, unspecified; Z86.73 Personal history of transient ischemic attack (TIA), and cerebral infarction without residual deficits; Z79.899 Other long term (current) drug therapy; Z79.82 Long term (current) use of aspirin
CPT/HCPCS: 70450; 71045; 80053; 81003; 82550; 84484; 85025; 93005; J8499

== ENCOUNTER 2019-01-02 14:08 | Inpatient (IN) | payer MEDICARE, BC ==
[2019-01-02] MEDS ORDERED: hydrALAZINE 20 MG/ML VIAL SLOW IVP PRN (15:53)
[2019-01-02] MEDS ORDERED: Acetaminophen 500 MG TAB PO PRN (15:56)
[2019-01-02] MEDS ORDERED: cloNIDine 0.1 MG TAB PO PRN ×2 (15:56→17:40)
[2019-01-02] MEDS: Clopidogrel Bisulfate 75 MG TAB PO SCH (18:40)
[2019-01-02] MEDS: Aspirin 325 mg Enteric Coated Tablet PO SCH (18:40)
--- NOTE | 2019-01-02 19:07 | HP ---
HISTORY OF PRESENT ILLNESS: This is a 78-year-old white male with a history of a CVA in May 2018, who presents with a recurrent event. The states that in May of 2018, this year, the patient presented to the ER with acute CVA. He was seen by Dr. Chacon. He was started on aspirin and Plavix at that time. He presented with a right homonymous hemianopsia as well as right hemiparesis. He did have an infarct. There was infarct involving the medial cortex of the left temporal lobe and left occipital lobe. Since then, he has had a right hemiparesis as well. He has been receiving physical therapy and occupational therapy. He was doing relatively well until approximately 10 a.m., this morning. The came home to see her on the couch slouched over and snoring. She could not arouse him and immediately called EMS. He was brought to the emergency room, where he was becoming more responsive. The states that over the past several hours, his speech has improved. His strength has also improved. However, she states he is not back at baseline yet. He still has some difficulty with speech. Instantly, he was given a BCG this past Saturday and for bladder cancer by Dr. Robles. PAST MEDICAL HISTORY: Hypertension, hyperlipidemia, hypothyroidism, Conte esophagus, bladder cancer, herniated cervical disk, hypothyroidism, reflux, skin cancer, migraines. PAST SURGICAL HISTORY: Includes excision of skin cancer, colonoscopy, cystoscopy. PAST FAMILY HISTORY: Father with pancreatic cancer. Mother at the age of 98. SOCIAL HISTORY: He is retired. He is , and he does have a history of alcoholism. He presently lives with his spouse. He is a nonsmoker. ALLERGIES: SULFA. STATINS CAUSE MYALGIAS. VERAPAMIL CAUSES HIGH POTASSIUM. COZAAR AND LISINOPRIL ALSO CAUSE HIGH POTASSIUM. MEDICATIONS: 1. Levothyroxine 50 daily. 2. Nisoldipine ER 8.5 daily. 3. Toprol-XL 50 daily. 4. Aspirin 325 daily. 5. Surfak 240 daily. 6. Fenofibrate 145 daily. 7. Hydralazine 25 t.i.d. 8. at bedtime. 9. Zetia 10 daily. 10. Plavix 75 daily. REVIEW OF SYSTEMS: As above. PHYSICAL EXAMINATION: VITAL SIGNS: Blood pressure 190/89, pulse 64, respirations 18, pulse ox 98. GENERAL: The patient is sitting up. He is talking. Speech, he seems to have some difficulty finding words. However, he does can speak in sentences. He answers all questions appropriately. HEENT: Clear. NECK: Supple. HEART: Regular rate and rhythm. LUNGS: Clear. ABDOMEN: Soft. NEUROLOGIC: He does have right-sided weakness with hypertonicity. Slightly increased reflexes on the right. Definite weakness on the right. Left side normal. Abnormal [id number] and a rapid alternating movement on the right. He does have a right-sided homonymous hemianopsia. IMAGING STUDIES: CT of the brain shows no evidence of acute abnormality. 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 Chest x-ray, negative. ASSESSMENT: 1. Transient ischemic attack, rule out recurrent cerebrovascular accident. 2. Cerebrovascular accident, May 2018, with right hemiparesis. 3. Right homonymous hemianopsia. 4. Bladder cancer. 5. Alcoholism history. 6. Hypertension. 7. Hyperlipidemia. 8. Hypothyroid. 9. Skin cancer. 10. Migraines. PLAN: 1. MRI to evaluate for any evidence of new infarcts. If positive, we will consult Neurology. 2. Resume aspirin and Plavix. 3. OT and PT. 4. Consider retrial of statins. The patient has myalgias from statins in the past. 5. Need to consider whether to continue BCG. Job ID: [id number]
[2019-01-02] MEDS: Famotidine 20 MG TAB PO SCH (20:42)
[2019-01-02] MEDS: Docusate 100 MG CAP PO SCH (20:42)
[2019-01-03 05:11] LABS: Cardiac Risk 4.2 (Less than 4.5)
[2019-01-03] MEDS: Levothyroxine Sodium 50 MCG TAB PO SCH (07:49)
[2019-01-03] MEDS: Docusate 100 MG CAP PO SCH ×2 (08:25→20:53)
[2019-01-03] MEDS: Clopidogrel Bisulfate 75 MG TAB PO SCH (08:25)
[2019-01-03] MEDS: Fenofibrate Nanocrystallized 145 MG TAB PO SCH (08:26)
[2019-01-03] MEDS: Amlodipine 5 MG TAB PO SCH (08:26)
[2019-01-03] MEDS: Aspirin 325 mg Enteric Coated Tablet PO SCH (08:29)
[2019-01-03] MEDS: Famotidine 20 MG TAB PO SCH ×2 (08:29→20:53)
[2019-01-03] MEDS: Ezetimibe 10 MG TAB PO SCH (08:32)
[2019-01-03] MEDS ORDERED: Prevnar 13-Val Conj/PF 0.5 ML SYRINGE IM ONE (09:00)
--- NOTE | 2019-01-03 10:28 | PRG ---
DATE OF SERVICE: 01/03/2019 SUBJECTIVE: This morning, the patient is doing well. His states he is nearly back to baseline. The patient's speech is clear, converses appropriately. OBJECTIVE: VITAL SIGNS: Temperature 98.4, pulse 64, blood pressure 161/68, respirations 16, and pulse ox 94%. GENERAL: No acute distress. HEENT: Clear. HEART: Clear. LUNGS: Clear. ABDOMEN: Soft. NEURO: Nearly at baseline. LABORATORY DATA: Cholesterol 178, triglycerides 119. ASSESSMENT: 1. Transient ischemic attack, rule out cerebrovascular accident. It appears to be transient ischemic attack. The patient appears to be back at baseline. 2. Cerebrovascular accident in May 2018 with right hemiparesis. 3. Right homonymous hemianopsia. 4. Bladder cancer. 5. Alcoholism history. 6. Hypertension. 7. Hyperlipidemia. 8. Hypothyroid. 9. Skin cancer. 10. Migraines. PLAN: 1. MRI today. 2. Consult Dr. Chacon, Neurology. 3. Resume aspirin and Plavix. 4. OT/PT. 5. The patient is doing well. Job ID: [id number]
--- NOTE | 2019-01-03 10:34 | MRI ---
EXAM: MRI of the brain without contrast HISTORY: Stroke with dizziness COMPARISON: None TECHNIQUE: Multiplanar multisequence MR images were obtained of the brain without IV contrast. FINDINGS: Scattered foci of high T2/FLAIR signal in the subcortical and periventricular white matter are likely secondary to small vessel ischemic disease. Encephalomalacia seen in the left parieto-occipital region. No restricted diffusion. No hydronephrosis. No extra-axial fluid collection or intracranial hemorrhage. The expected flow voids are present. Corpus callosum, pituitary, and craniocervical junction are within normal limits. The calvarium and overlying soft tissues are unremarkable. The paranasal sinuses and mastoid air cells are well aerated. IMPRESSION: Small vessel ischemic disease without acute intracranial abnormality.
[2019-01-03 12:47] LABS: Anion Gap 11 mmol/L (10-20); BUN (Urea Nitrogen) 15 mg/dL (8.4-25.7); Calc. Creatinine Clearance 81 mL/min (70-130); Calcium 9.9 mg/dL (7.8-10.44); Carbon Dioxide 31 mmol/L (23-31); Chloride 101 mmol/L (98-107); Estimated GFR-MDRD Greater than 90; Glucose 87 mg/dL (83-110); Potassium 5.2 mmol/L (3.5-5.1); Sodium 138 mmol/L (136-145)
--- NOTE | 2019-01-03 14:37 | CT ---
Exam: CTA neck with contrast CTA head with contrast HISTORY: TIA. History of stroke in May with right-sided deficits COMPARISON: None TECHNIQUE: 1. Multiple contiguous axial images were obtained and a CTA of the neck with contrast. 3-D sagittal a nd coronal MIP reformats were performed. 2. Multiple contiguous axial images were obtained and a CTA of the head with contrast. 3-D sagittal a nd coronal MIP reformats were performed. FINDINGS: CTA NECK: Aortic arch: There is an aberrant right subclavian artery. No significant atherosclerotic disease of the subclavian arteries. Right common carotid artery: No significant atherosclerotic disease or narrowing Left common carotid artery: No significant atherosclerotic disease or narrowing Right internal carotid artery: There is a small amount of atherosclerotic disease at the bifurcation without significant stenosis. There is a moderate amount of atherosclerotic disease slightly distal to the bifurcation with approximately 40% stenosis per NASCET criteria Right external carotid artery: No significant atherosclerotic disease or narrowing Left internal carotid artery: There is a small amount of atherosclerotic disease in the proximal left internal carotid artery without significant stenosis per NASCET criteria Left external carotid artery: No significant atherosclerotic disease or narrowing Right cervical vertebral artery: No significant atherosclerotic disease or narrowing Left cervical vertebral artery: No significant atherosclerotic disease or narrowing No cervical adenopathy. The lung apices are unremarkable. Degenerative changes are seen in the spine. CTA HEAD: There is encephalomalacia in the left parieto-occipital region. Scattered hypodensities are consisten t with small vessel ischemic disease. There is moderate to severe bilateral nonfocal calcified atherosclerotic disease in the cavernous por tion of both internal carotid arteries. Right intracranial internal carotid artery: Patent without narrowing or occlusion Right anterior cerebral artery: Patent without narrowing or occlusion Right middle cerebral artery: Patent without narrowing or occlusion Left intracranial internal carotid artery: Patent without narrowing or occlusion Left anterior cerebral artery: Patent without narrowing or occlusion Left middle cerebral artery: Patent without narrowing or occlusion No aneurysmal dilatation is seen in the anterior circulation. Right vertebral artery: Patent without narrowing or occlusion Left vertebral artery: Dominant compared to the right vertebral artery. Patent without narrowing or o cclusion Basilar artery: Patent without narrowing or occlusion The posterior cerebral arteries and cerebellar arteries are patent without narrowing or occlusion. No aneurysmal dilatation is seen in the posterior circulation. IMPRESSION: 1. Approximately 40% stenosis of the right cervical internal carotid artery per NASCET criteria. 2. No significant CTA abnormality of the head
[2019-01-03 15:04] VITALS: BMI 24.7
[2019-01-03] MEDS ORDERED: ISOVUE-370 76%-LOCM 1 ML ONE (16:14)
--- NOTE | 2019-01-03 17:21 | CON ---
DATE OF TELEMEDICINE CONSULTATION: 01/03/2019, [facility] CHIEF COMPLAINT: Loss of consciousness. HISTORY OF PRESENT ILLNESS: Yesterday in the morning, went to the store and when she came back, she found him unconscious on the couch. He was stiff and snoring. There was some foaming at the mouth. He was not having any seizures. He was simply unconscious and she could not wake him up, so she called 911 and he was brought into the ER. 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 Following our recommendations, he was going to see Dr. Jimenez for potential stenting of the left REHABILITATION SERVICES DIRECTOR and the patient's stated she did go and take him there and no stent was planned at that time. PREVIOUS MEDICAL HISTORY: Bladder cancer, hypertension, and hypothyroidism. Bladder cancer was diagnosed in 2017 and he had chemo and surgery. PAST SURGICAL HISTORY: Bladder surgery, prostate surgery, benign prostatic hypertrophy. ALLERGIES: ALLERGY TO STATIN AND SULFA DRUGS, VERAPAMIL, AND LISINOPRIL. MEDICATIONS: At home currently, 1. Aspirin. 2. Nisoldipine. 3. Synthroid. 4. Metoprolol. 5. Zetia. 6. Biotin. FAMILY HISTORY: Positive for prostate cancer in his father, who at age 77. Son and daughter are 51 and 49, and there is no known history of stroke in his family. Mother at 98 from coronary artery disease. SOCIAL HISTORY: Does not smoke. Drinks 5 to 6 glasses per day. He mostly drinks bourbon and water at least 4 glasses of water per night. REVIEW OF SYSTEMS: NEUROLOGIC: Positive for vision changes and loss of consciousness. CARDIAC: Negative for chest pain. PULMONARY: Negative for shortness of breath. GI: Negative for diarrhea or vomiting. HEMATOLOGIC: Negative for bleeding diathesis. METABOLIC: Negative for diabetes but, positive for thyroid dysfunction. MUSCULOSKELETAL: Negative for any joint pain. LABORATORY DATA: His current labs include sodium 138, potassium 5.2, chloride 101, bicarb 31, BUN 15, creatinine 0.82. Cholesterol panel was within normal limits and his white count 4.5, hemoglobin 15.4, hematocrit 45.7, and platelet count 180. His MRI of the brain did not show any acute stroke and he has small-vessel disease. I repeated his CT angiography and he has 40% stenosis of the right internal carotid artery and there was no narrowing of the posterior cerebral arteries or cerebellar artery. This time on exam on his CTA. PHYSICAL EXAMINATION: VITAL SIGNS: Temperature 98.4, pulse 52, blood pressure 161/68, and respiratory rate 16. GENERAL APPEARANCE: Well-built, well-nourished man. CHEST: Clear vesicular breathing. CARDIOVASCULAR: S1 and S2 heard. No murmurs. ABDOMEN: Soft and nontender. No organomegaly noted. NEUROLOGIC: Higher intellectual functions, normal orientation to time, place, and person. Appropriate conversation. Cranial nerves 2 to 12 normal. Extraocular movements. Tongue midline. No atrophy noted. He had pupils were 2 mm, reactive to light bilaterally and he had right temporal visual field deficit, which is residual from the stroke in May. Tongue midline. No atrophy noted. Normal elevation of palate. Sensory is normal. Exam of the face was also normal. Motor examination; bulk normal, tone normal, strength 5/5 throughout in iliopsoas, hamstrings, quadriceps, ankle dorsiflexion, plantar flexion, deltoid, biceps, triceps, wrist extension and flexion, finger extension and flexion bilaterally. Deep tendon reflexes are 2+ throughout and sensory normal to touch bilaterally. Cerebellar, normal [id number] and [id number]. IMPRESSION: The patient is a 78-year-old man with history of cancer and also hypertension and also stroke in May when I saw him last. He has family history of cancer and he also has hyperlipidemia. His examination currently shows residual visual field deficits from the prior stroke. His repeat angiogram does not show any specific of vascular narrowing. I suspect he might have had a TIA involving the basilar artery. Current medication, he is on aspirin and Plavix as well. RECOMMENDATIONS: Consider Cardiology consult to see if he has any specific cardiac abnormalities that would qualify him for anticoagulation. At this time, if Plavix was just started during this admission, we can leave him on aspirin with Plavix. If he was on Plavix prior to this admission, then we may have to consider anticoagulation. I will follow up the patient with you. Job ID: [id number] MTDD
[2019-01-04] MEDS: Levothyroxine Sodium 50 MCG TAB PO SCH (05:29)
[2019-01-04 08:35] LABS: #Eosinphils 0.2 thou/uL (0.0-0.7); #Lymphocytes 0.7 thou/uL (1.20-3.40); #Monocytes 0.5 thou/uL (0.11-0.59); #Neutrophils 3.3 thou/uL (1.40-6.50); %Basophils 0.1 % (0.0-1.0); %Eosinophils 4.4 % (0.0-10.0); %Lymphocytes 15.6 % (21.0-51.0); %Monocytes 10.7 % (0.0-10.0); %Neutrophils 69.3 % (42.0-75.0); Mean Corpuscular HGB CONC 32.9 g/dL (32.0-36.0); Mean Corpuscular Hemoglobin 30.7 pg (27.0-31.0); Mean Corpuscular Volume 93.1 fL (78.0-98.0); Mean Platelet Volume 8.5 fL (7.4-10.4); Platelet Count 167 thou/uL (130-400); RBC Distribution Width 12.5 % (11.5-14.5); Red Blood Cell (RBC) Count 4.58 mill/uL (4.70-6.10); White Blood Cell (WBC) Count 4.7 thou/uL (4.8-10.8)
[2019-01-04 08:55] LABS: ALT (SGPT) 14 U/L (8-55); AST (SGOT) 22 U/L (5-34); Albumin 3.9 g/dL (3.4-4.8); Alkaline Phosphatase 57 U/L (40-150); Anion Gap 10 mmol/L (10-20); BUN (Urea Nitrogen) 15 mg/dL (8.4-25.7); Bilirubin, Total 0.4 mg/dL (0.2-1.2); Calc. Creatinine Clearance 75 mL/min (70-130); Calcium 9.9 mg/dL (7.8-10.44); Carbon Dioxide 31 mmol/L (23-31); Chloride 103 mmol/L (98-107); Estimated GFR-MDRD 84; Globulin 2.8 g/dL (2.4-3.5); Glucose 100 mg/dL (83-110); Potassium 5.1 mmol/L (3.5-5.1); Protein, Total 6.7 g/dL (5.8-8.1); Sodium 139 mmol/L (136-145)
[2019-01-04] MEDS: Amlodipine 5 MG TAB PO SCH (09:50)
[2019-01-04] MEDS: Ezetimibe 10 MG TAB PO SCH (09:52)
[2019-01-04] MEDS: Famotidine 20 MG TAB PO SCH ×2 (09:52→19:56)
[2019-01-04] MEDS: Docusate 100 MG CAP PO SCH ×2 (09:52→19:56)
[2019-01-04] MEDS: Clopidogrel Bisulfate 75 MG TAB PO SCH (09:52)
[2019-01-04] MEDS: Fenofibrate Nanocrystallized 145 MG TAB PO SCH (09:52)
[2019-01-04] MEDS: Aspirin 325 mg Enteric Coated Tablet PO SCH (09:52)
--- NOTE | 2019-01-04 12:05 | PRG ---
DATE OF SERVICE: 01/04/2019 SUBJECTIVE: No recurrent chest pain, shortness of breath, nausea, or vomiting. The patient's neuro status has remained stable throughout his stay. He continues to converse without any difficulty. OBJECTIVE: VITAL SIGNS: Temperature 99.0, pulse 49, respirations 16, pulse ox 95%, and blood pressure 125/65. HEART: Bradycardic. LUNGS: Clear. ABDOMEN: Soft. EXTREMITIES: With no edema. LABORATORY DATA: None this morning. ASSESSMENT: 1. Transient ischemic attack, rule out cerebrovascular accident. The patient was seen by Dr. Chacon, Neurology yesterday. She felt that the patient probably had a transient ischemic attack. No changes in his MRI. His CTA angio was performed, which was unremarkable. Dr. Chacon recommends Cardiology evaluation for possible need for anticoagulation. 2. Cerebrovascular accident in May 2018 with right hemiparesis and right homonymous hemianopsia. 3. Bladder cancer. 4. Alcoholism history. 5. Hypertension. 6. Hyperlipidemia. 7. Hypothyroid. 8. Skin cancer. 9. Migraines. PLAN: 1. Consult Cardiology. 2. Echo. 3. Continue aspirin and Plavix. 4. Continue OT, PT. Job ID: [id number]
--- NOTE | 2019-01-04 13:05 | PRG ---
DATE OF SERVICE: CHIEF COMPLAINT: Possible stroke. INTERVAL HISTORY: The patient reports he has been doing well since yesterday. No further events are noted. LABORATORY DATA: His current workup; so far his CT angiogram was negative for any stenotic lesion in the posterior circulation other than 40% stenosis of the right cervical internal carotid artery, which needs to be monitored. There was no occlusion in the posterior cerebral artery, unlike last visit and his MRI of the brain was unremarkable for any acute infarct at this time, but he has small-vessel ischemic changes. His laboratory workup; white count 4.7, hemoglobin 14, hematocrit 42.6, platelets 167. Chemistry; sodium 139, potassium 5.1, chloride 103, bicarb 31, BUN 15, creatinine 0.88. Triglycerides, cholesterol, LDL, HDL are all within normal limits at this time and coagulation panel is within normal limits as well. PHYSICAL EXAMINATION: VITAL SIGNS: Today, temperature was 99.6, pulse 59, respiratory rate 10, blood pressure 148/72. GENERAL APPEARANCE: Well-built, well-nourished man without any confusion. CHEST: Clear vesicular breathing. NEUROLOGIC: Higher intellectual functions normal. Cranial nerves 2 through 12 normal with normal extraocular movements. Tongue midline. No facial asymmetry noted. Pupils are 2 mm, reactive bilaterally. Motor, bulk normal, tone normal. Strength 5/5 throughout. IMPRESSION: The patient is a 78-year-old man with an episode where his found him stiff and unresponsive and he woke up later once EMS came in and his current workup including MRI brain and CT angiogram do not show any posterior vascular event. I suspect he might have had first seizure or he could have had a transient ischemic attack. RECOMMENDATIONS: Continue the patient on aspirin with Plavix. He will need a Neurology followup as outpatient with Dr. Moe. Call me if you have any further questions, and he is okay for discharge from a neuro standpoint. Job ID: [id number]
--- NOTE | 2019-01-04 19:39 | CON ---
DATE OF CONSULTATION: 01/04/2019 REASON FOR CONSULTATION: Cryptogenic stroke. HISTORY OF PRESENT ILLNESS: Mr. Russell is a pleasant 78-year-old white gentleman, who comes to the hospital for an event. About 8 months ago, he had a CVA and at this time around, he was found down. Neurology evaluated and they were in between this being either seizure or a TIA. Because of the recurrence of the possible stroke, Cardiology is consulted to consider if there is an indication for full anticoagulation. He has been on Plavix all this time. PAST MEDICAL HISTORY: 1. History of bladder cancer. 2. Hypertension. 3. Hypothyroidism. PAST SURGICAL HISTORY: 1. Bladder surgery for bladder cancer after chemo. 2. Prostate surgery. 3. BPH. OUTPATIENT MEDICATIONS: Include: 1. Clonidine. 2. Nisoldipine. 3. Metoprolol succinate 50 mg a day. 4. Levothyroxine. 5. Famotidine. 6. Ezetimibe. 7. Docusate. 8. Tylenol Extra Strength. 9. Hydralazine 25 mg t.i.d. 10. TriCor. 11. Colace. 12. Plavix 75 mg a day. 13. Aspirin 325 a day. ALLERGIES: 1. LISINOPRIL. 2. LOSARTAN. 3. STATINS. 4. SULFA DRUGS. 5. VERAPAMIL. FAMILY HISTORY: No early coronary artery disease. SOCIAL HISTORY: Drinks about 5 or 6 glasses of bourbon a day. No tobacco or drugs. REVIEW OF SYSTEMS: Twelve-point review of systems was done and was all negative unless stated in the history of present illness. PHYSICAL EXAMINATION: VITAL SIGNS: Temperature 98.3, pulse 62, respiratory rate 16, saturating 93% on room air, and blood pressure 136/71. GENERAL: Awake, alert, and oriented x3, in no distress. HEENT: Normocephalic and atraumatic. NECK: Supple. LUNGS: Clear. CARDIOVASCULAR: S1 and S2. No S3 or S4. No murmurs. ABDOMEN: Soft. Positive bowel sounds. EXTREMITIES: Trace edema. SKIN: Warm and dry. LABORATORY DATA: Laboratory work was reviewed. CBC with a white count 4.7, hemoglobin of 14, hematocrit 42, platelet count of 167. Chemistries are unremarkable except for potassium 5.2 down out to 5.1, otherwise unremarkable. GFR greater than 90. Cholesterol total of 178, LDL of 112, HDL of 42, and triglycerides of 119. CTA of the [place] was reviewed. MRI of the brain and CT of the brain. Echocardiogram has not been done so far. ASSESSMENT: 1. Cryptogenic stroke. 2. Possible seizure versus recurrent cryptogenic stroke/transient ischemic attack. PLAN: 1. Currently, there is no indication for full anticoagulation. 2. Because there is no clear reason for his CVA that happened in May and this is either recurrence versus seizure event that happened this time around, there is an indication for further monitoring with an implantable loop recorder for long-term monitoring for atrial fibrillation or atrial flutter. I spoke with Mr. Russell about implanting a LINQ implantable loop recorder and he agrees to proceed. Risks include infection and bleeding. The patient understands, verbalized understanding of this and agrees to proceed. 3. We will plan on inserting a LINQ implantable loop recorder tomorrow, may be discharged home after that at any point from the cardiac perspective on his current regimen. Job ID: [id number]
[2019-01-05] MEDS: Levothyroxine Sodium 50 MCG TAB PO SCH (05:15)
[2019-01-05] MEDS ORDERED: Lidocaine 1% w/Epinephrine 1:100K 20 ML VIAL ONE (08:57)
--- NOTE | 2019-01-05 09:07 | PRG ---
DATE OF SERVICE: 01/05/2019 SUBJECTIVE: The patient is feeling somewhat better. He denies chest pain or shortness of breath. No nausea or vomiting. He is ambulating in the ramos and then in the room, tolerating PT and OT. He continues to have right-sided visual neglect at his baseline. Continues to have problems reading. No new neurologic signs or symptoms noted. Appetite is good. Swallowing without difficulty. OBJECTIVE: VITAL SIGNS: Temperature 99.2, pulse 50 to 53, respirations 16, blood pressure 166/74, and pulse ox is 93% to 96% on room air. GENERAL: He is awake and alert, in no acute distress. Speech is clear and fluent. NECK: Supple. No bruits heard. HEART: Regular rate and rhythm. Telemetry with no episodes. LUNGS: Clear bilaterally. NEUROLOGIC: Strength is 5/5 in upper and lower extremities. Sensation is intact. Again, he continues to have a right-sided visual field neglect. Clock drawing as noted. He is oriented to person, place, and time. Mini-mental status exam was abnormal. IMAGING DATA: CT angiogram and MRI are as noted. ASSESSMENT AND PLAN: This is a 78-year-old gentleman with a recent posterior cerebral artery infarction in May 2018 with resultant mild right hemiparesis and right homonymous hemianopsia. History of bladder cancer, now status post syncopal episode. 1. Appreciate neurologic evaluation by Dr. Chacon. No signs of repeat cerebrovascular accident, but possible transient ischemic attack. We will arrange outpatient EEG to assist in ruling out seizure activity. We will continue aspirin and Plavix. 2. Carotid stenosis at 40%. Possible consideration of a CV Surgical evaluation as an outpatient. It does not seem like it is severe enough to be an etiology of his past cerebrovascular accident and his syncopal episode. 3. Rule out dysrhythmia. Appreciate Dr. Moody's evaluation. He is to have implanted loop recorder placed to monitor any dysrhythmias. 4. Disposition, hopefully home later today. I will arrange home health evaluation due to his syncopal episode, dementia, and fall risk. We will initiate PT, OT, and Speech Therapy as an outpatient. Job ID: [id number]
[2019-01-05] MEDS: Amlodipine 5 MG TAB PO SCH (09:28)
[2019-01-05] MEDS: Fenofibrate Nanocrystallized 145 MG TAB PO SCH (09:33)
[2019-01-05] MEDS: Clopidogrel Bisulfate 75 MG TAB PO SCH (09:33)
[2019-01-05] MEDS: Aspirin 325 mg Enteric Coated Tablet PO SCH (09:33)
[2019-01-05] MEDS: Famotidine 20 MG TAB PO SCH (09:33)
[2019-01-05] MEDS: Ezetimibe 10 MG TAB PO SCH (09:33)
[2019-01-05] MEDS: Docusate 100 MG CAP PO SCH (09:34)
[2019-01-05 14:46] LABS: Bacteria/HPF None Seen HPF (None Seen); Bilirubin Negative (Negative); Blood, Urine Trace (Negative); Clarity Clear (Clear); Glucose, Urine (Dipstick) Normal (Negative); Leukocyte 75 Leu/uL (Negative); Nitrite Negative (Negative); Protein, Urine (Dipstick) Negative (Neg-Trace); RBC/HPF 0-3 HPF (0-3); Squamous Epithelial 0-3 HPF (0-3); Urobilinogen Normal mg/dL (Less than 2)
[2019-01-05 15:39] VITALS: BP 176/81; TEMP 98.8
--- NOTE | 2019-01-06 09:04 | CCL ---
DATE: 01/05/19 PROCEDURE: Insertion of permanent emblem fuser tender, model MDP Linq 11, serial #[id number], [facility] patient jessi nielsen, serial #[id number]. INDICATION: Cryptogenic stroke. COMPARISON: None. DESCRIPTION OF PROCEDURE: The patient was taken to the procedural area, prepped and draped in the usual sterile fashion. Lidoca ine was used for local anesthesia. Incision was made at the fourth intercostal space and left pectora l region utilizing a skin puncture. The insertable emblem fuser tender Linq was inserted through the [facility] tur site with the Linq insertion tool. Dermabond and steri-strips were applied to the site in the [facility] sterile fashion. RECOMMENDATIONS: Continue monitoring for possible thromboembolic generator arrhythmias.
== END 2019-01-05 17:18 | disposition home health service (06) | DRG 41 ==
LOC: 2SE 15:36 → OBSVTOIN 15:36
PROVIDERS: ADMIT Family Medicine; ATTEND Family Medicine
PROC: 0JH632Z Insertion of Monitoring Device into Chest Subcutaneous Tissue and Fascia, Percutaneous Approach (ICD-10-PCS; principal; 2019-01-05)
DX: G45.9 Transient cerebral ischemic attack, unspecified (principal); I69.351 Hemiplegia and hemiparesis following cerebral infarction affecting right dominant side; I65.21 Occlusion and stenosis of right carotid artery; I10 Essential (primary) hypertension; E78.5 Hyperlipidemia, unspecified; E03.9 Hypothyroidism, unspecified; G43.909 Migraine, unspecified, not intractable, without status migrainosus; H53.47 Heteronymous bilateral field defects; F03.90 Unspecified dementia, unspecified severity, without behavioral disturbance, psychotic disturbance, mood disturbance, and anxiety; H53.8 Other visual disturbances; N40.0 Benign prostatic hyperplasia without lower urinary tract symptoms; Z79.01 Long term (current) use of anticoagulants; Z85.51 Personal history of malignant neoplasm of bladder; I69.398 Other sequelae of cerebral infarction; Z85.828 Personal history of other malignant neoplasm of skin; Z88.2 Allergy status to sulfonamides; Z88.8 Allergy status to other drugs, medicaments and biological substances; Z79.899 Other long term (current) drug therapy; Z79.82 Long term (current) use of aspirin
CPT/HCPCS: 33285; 36415; 70496; 70498; 70551; 80048; 80053; 80061; 81001; 85025; 87086; 93306; C1764; J2001; Q9966

== ENCOUNTER 2019-01-23 12:36 | Outpatient (CLI) | payer MEDICARE, BC | END 2019-01-23 12:37 | disposition home or self-care (01) | LOC: EEG 12:36 | PROVIDERS: ATTEND Family Medicine | DX: R53.1 Weakness (principal) | CPT/HCPCS: 95816 ==

== ENCOUNTER 2019-03-19 08:25 | Outpatient (CLI) | payer MEDICARE, BC ==
--- NOTE | 2019-03-19 09:51 | CT ---
CT BRAIN WITHOUT CONTRAST: HISTORY:CVA, migraine headaches, aura COMPARISON:10/19/2018 FINDINGS: There are foci of decreased attenuation in the periventricular white matter, consistent with chronic small vessel ischemic disease. Encephalomalacia from previous left ASSISTANT PROGRAM DIRECTOR infarction is again seen. No evidence of acute infarct, hemorrhage, midline shift or abnormal extra-axial fluid collections is seen. The ventricular size is stable and the basilar cisterns are patent. The bony calvarium is intact. The visualized paranasal sinuses and mastoid air cells are well aerated. IMPRESSION: No CT evidence of acute intracranial process.
== END 2019-03-19 08:26 | disposition home or self-care (01) ==
LOC: SCSCT 08:25
PROVIDERS: ATTEND Family Medicine
DX: I66.22 Occlusion and stenosis of left posterior cerebral artery (principal); G44.1 Vascular headache, not elsewhere classified
CPT/HCPCS: 70450

== ENCOUNTER 2019-04-17 09:26 | Outpatient (CLI) | payer MEDICARE, BC ==
--- NOTE | 2019-04-17 11:53 | CT ---
CT ABDOMEN AND PELVIS WITH AND WITHOUT IV CONTRAST: Date: 04/17/19 HISTORY: Malignant neoplasm of overlapping sites of bladder. COMPARISON: 08/19/17. FINDINGS: There has been interval development of a small right pleural effusion since the last exam. The liver, spleen, pancreas, and adrenal glands appear normal. No calcified gallstones are seen. No free air, f ree fluid, or lymphadenopathy seen in the abdomen or pelvis. The small bowel loops are not abnormally dilated. There is sigmoid diverticulosis. Vascular calcifications are present without evidence of an eurysmal dilatation of the abdominal aorta. There are degenerative changes in the spine. No osteolyti c or osteoblastic lesions are seen. Small, fat-containing bilateral inguinal hernia again noted. No calculi seen in the kidneys, ureters, or the urinary bladder. No hydroureteronephrosis noted on ei ther side. Postcontrast images demonstrate no evidence of renal mass on either side. There is normal contrast excretion by the kidneys into the ureters and the urinary bladder. The prostate is enlarged. There is thickening of the wall of the urinary bladder. IMPRESSION: 1. New small right pleural effusion since 08/19/17. 2. No CT evidence of urinary tract calculi/obstruction or renal mass. 3. Sigmoid diverticulosis. 4. Prostatic enlargement. 5. Thickening of the wall of the urinary bladder. POS: [facility]
== END 2019-04-17 09:27 | disposition home or self-care (01) ==
LOC: SCSCT 09:26
PROVIDERS: ATTEND Urology
DX: C67.8 Malignant neoplasm of overlapping sites of bladder (principal); J90 Pleural effusion, not elsewhere classified; K57.30 Diverticulosis of large intestine without perforation or abscess without bleeding; N40.1 Benign prostatic hyperplasia with lower urinary tract symptoms; N32.89 Other specified disorders of bladder
CPT/HCPCS: 74178; 81001